=== PATIENT | female | born 1935 | race Caucasian/White ===

== ENCOUNTER → 2017-09-11 10:23 | Outpatient (CLI) | payer MEDICARE, OTHER, SELFPAY ==
[2017-09-11 12:25] LABS: Color, Urine Yellow (Yellow); Glucose, Dipstick Normal (Normal); Ketone-Dipstick 5 mg/dl (Negative); Leukocyte Esterase-Dipstick Negative /ul (Negative); Nitrite-Dipstick Negative (Negative); Occult Blood-Urine 10 /ul (Negative); Protein-Dipstick Negative (Negative); Urine Bilirubin Dipstick Negative (Negative); Urine Clarity Sl. Cloudy (Clear); Urine Urobilinogen Normal (Normal)
[2017-09-11 12:30] LABS: Hematocrit 40.7 % (37-47); Mean Corp Hgb Conc 34.4 g/gl (32-36); Mean Corpuscular Hgb 33.3 pg (27.0-32.0); Mean Corpuscular Volume 96.9 fL (81-99); Platelet Count 164 K/mm3 (150-450); RBC Distribution Width CV 12.2 % (11.6-14.6); RBC Distribution Width SD 41.9 fl (35.1-43.9); Scan Indicated on CBC? Y/N NO; Vitamin D,25 Hydroxy 46.5 ng/mL (19.95-100.01); White Blood Count 5.7 K/mm3 (4.4-11.0)
[2017-09-11 12:31] LABS: PTHIN 35.2 pg/mL (18.4-80.1)
[2017-09-11 12:42] LABS: Albumin, Serum 3.9 g/dL (3.2-5.0); BUN 22 mg/dL (7-18); BUN/Creat Ratio 18.3 RATIO (10-20); Calcium,Total 9.4 mg/dL (8.5-10.1); Chloride 98 mmol/L (98-107); EST Glomerular Filtration Rate 46 mL/min (>60); Est Glom Filt Rate - Afr Amer 56 mL/min (>60); Ferritin 663 ng/mL (8-252); Glucose 87 mg/dL (74-106); Iron 114 ug/dL (50-170); Iron Binding Capacity,Total 262 ug/dL (250-450); PERCENT IRON SATURATION 43.5 % (15.0-55.0); Phosphorus 3.5 mg/dL (2.5-4.9); Potassium 4.1 mmol/L (3.5-5.1); Sodium Level 134 mmol/L (136-145)
[2017-09-11 12:47] LABS: Microalbumin,Random Urine 6.6 mg/L (NO RANGE EST.); Microalbumin:Creatinine Ratio 8.9 mg/g CRE (<30 mg/g CRE)
== END ==
PROVIDERS: Family Provider Family Medicine; PCP Family Medicine; Visit Provider Internal Medicine Nephrology
DX: N18.3 Chronic kidney disease, stage 3 (moderate) (principal); D50.9 Iron deficiency anemia, unspecified; E55.9 Vitamin D deficiency, unspecified
CPT/HCPCS: 36415; 80069; 81002; 82043; 82306; 82570; 82728; 83540; 83550; 83970; 85027

== ENCOUNTER → 2017-09-20 07:56 | Outpatient (CLI) | payer MEDICARE, OTHER, SELFPAY ==
--- NOTE | 2017-09-20 07:59 | HPBI_ITS ---
MAMMOGRAPHY - BILATERAL SCREENING REASON FOR EXAM: Female, 81 years old. Routine annual screening examination. PERTINENT HISTORY: Aunt with breast cancer. TECHNIQUE: Digital bilateral breast stas (3D mammographic acquisition) in the CC and MLO projections. 2-D mediolateral oblique (MLO) and craniocaudad (CC) views of both breasts were obtained. CAD: Full Field Digital Mammography with Computer Added Detection was performed. COMPARISON: Comparison is made with prior study dated September 19, 2016 and September 16, 2015. FINDINGS: Breast Composition: There are scattered areas of fibroglandular density. There are no dominant masses or suspicious calcifications. No other significant abnormalities are identified. There has been no significant change since the prior study. HPBI/SCREENING MAMM (CAD), BILAT IMPRESSION: Stable bilateral screening mammogram. Yearly follow-up mammogram recommended. (A) ASSESSMENT CATEGORY: BIRADS Category 1: Negative. A letter regarding these results will be sent to the patient by the facility within 30 days. Approximately 10% of breast cancers are not detected by mammography. A normal mammogram should not delay biopsy of a clinically suspicious abnormality. [id number] Electronically Signed: Ruben Cook MD at 10:43 EST Tel [phone], Service support ,
== END ==
PROVIDERS: Visit Provider Family Medicine
DX: Z12.31 Encounter for screening mammogram for malignant neoplasm of breast (principal)
CPT/HCPCS: 77063; 77067

== ENCOUNTER 2017-09-29 09:17 | Outpatient (RCR) | payer MEDICARE, OTHER, SELFPAY ==
[2017-09-29 09:36] LABS: Prothrombin Time Fingerstick 27.8 SEC (11.9-14.4)
== END 2017-09-29 15:00 | disposition home or self-care (01) ==
LOC: MTLAB 09:17
PROVIDERS: Visit Provider Family Medicine
DX: Z79.01 Long term (current) use of anticoagulants (principal)
CPT/HCPCS: 36416; 85610

== ENCOUNTER → 2017-11-06 10:09 | Outpatient (CLI) | payer MEDICARE, OTHER, SELFPAY ==
[2017-11-06 10:26] LABS: Prothrombin Time Fingerstick 30.3 SEC (11.9-14.4)
== END ==
PROVIDERS: Visit Provider Family Medicine
DX: Z79.01 Long term (current) use of anticoagulants (principal)
CPT/HCPCS: 36416; 85610

== ENCOUNTER 2017-12-27 11:02 | Outpatient (RCR) | payer MEDICARE, OTHER, SELFPAY ==
[2017-12-07 09:26] LABS: Prothrombin Time Fingerstick 39.3 SEC (11.9-14.4)
[2017-12-27 11:11] LABS: Prothrombin Time Fingerstick 26.1 SEC (11.9-14.4)
== END 2017-12-27 12:00 | disposition home or self-care (01) ==
LOC: MTLAB 11:02
PROVIDERS: Visit Provider Family Medicine
DX: Z79.01 Long term (current) use of anticoagulants (principal)
CPT/HCPCS: 36416; 85610

== ENCOUNTER → 2018-01-24 09:33 | Outpatient (CLI) | payer MEDICARE, OTHER, SELFPAY ==
[2018-01-24 12:18] LABS: Absolute Lymphocyte Count 1.06 X10^3/ul (0.83-4.51); Absolute Neutrophil Count 3.4 X10^3/uL (2.0-7.7); Basophil# 0.04 X10^3/uL; Basophil% 0.8 % (0-1); Eosinophil# 0.06 X10^3/uL; Eosinophils% 1.1 % (0-5); Hematocrit 40.6 % (37-47); Hemoglobin 13.8 g/dl (12.0-15.0); Lymphocyte # 1.06 X10^3/ul (4.0); Lymphocyte % 19.9 % (19-41); Mean Corpuscular Hgb 32.6 pg (27.0-32.0); Mean Platelet Vol. 11.2 fl (6.2-12.0); Monocyte# 0.74 X10^3/uL; Monocyte% 13.9 % (0-10); Neutrophil # 3.41 X10^3/uL (2.7-7.7); Neutrophil % 63.9 % (47-70); Platelet Count 152 K/mm3 (150-450); RBC Distribution Width CV 12.3 % (11.6-14.6); RBC Distribution Width SD 41.9 fl (35.1-43.9); Red Blood Count 4.23 M/mm3 (4.2-5.4); White Blood Count 5.3 K/mm3 (4.4-11.0)
[2018-01-24 12:19] LABS: POSITIVE COUNT NO; POSITIVE DIFFERENTIAL NO; POSITIVE MORPHOLOGY NO
[2018-01-24 12:41] LABS: International Normalized Ratio 2.6; Prothrombin Time (Protime)PT. 28.3 SECONDS (11.7-14.9)
[2018-01-24 12:47] LABS: BNP,B-Type NATRIURETIC PEPTIDE 130.7 pg/mL (0-100)
[2018-01-24 12:51] LABS: Anion Gap 6 (5-15); BUN 24 mg/dL (7-18); BUN/Creat Ratio 20.3 RATIO (10-20); Calcium,Total 9.4 mg/dL (8.5-10.1); Chloride 99 mmol/L (98-107); Creatinine, Serum 1.18 mg/dL (0.55-1.02); EST Glomerular Filtration Rate 47 mL/min (>60); Est Glom Filt Rate - Afr Amer 57 mL/min (>60); Glucose 86 mg/dL (74-106); Sodium Level 133 mmol/L (136-145)
== END ==
PROVIDERS: Visit Provider Physician Assistant Medical
DX: I48.2 Chronic atrial fibrillation (principal); R06.00 Dyspnea, unspecified; R53.83 Other fatigue; Z79.01 Long term (current) use of anticoagulants
CPT/HCPCS: 36415; 80048; 83880; 84443; 85025; 85610; 93225; 93226

== ENCOUNTER → 2018-02-20 06:53 | Outpatient (CLI) | payer MEDICARE, OTHER, SELFPAY ==
--- NOTE | 2018-02-20 06:57 | ECHOD_ITS ---
Reason For Study: DYSPNEA Procedure This was a 2D Doppler, Color Flow transthoracic echocardiogram. Contrast injection was performed. Exam performed in department. Left Ventricle Normal LV size. Left ventricular systolic function is normal. The estimated ejection fraction is 65 %. Unable to assess diastolic dysfunction. No regional wall motion abnormalities noted. Right Ventricle Normal RV size. Normal systolic function. Atria The left atrium is moderately enlarged. The right atrium is mildly enlarged. No doppler evidence for ASD. Mitral Valve There is mild mitral annular calcification. Extension of the mitral annular calcification onto the base of the posterior mitral valve leaflet. Trivial mitral valve insufficiency. Tricuspid Valve Normal tricuspid valve. Mild tricuspid valve insufficiency. Right ventricular systolic pressure estimated to be 23 mmHg. Aortic Valve Trisinus/trileaflet aortic valve. Normal aortic valve. Pulmonic Valve The pulmonic valve is not well visualized. Trivial pulmonic valve insufficiency identified. Great Vessels Normal sized aortic root. Pericardium/Pleural No pericardial effusion. MMode/2D Measurements & Calculations LVIDd: 3.7 cm IVSd: 0.73 cm Ao root diam: 3.2 cm LVIDs: 2.6 cm LVPWd: 0.81 cm FS: 29.6 % LAV(MOD-bp): 65.0 ml LA A4 area: 17.7 cm2 RA A4 area: 17.6 cm2 LAV(MOD-bp) Indexed: 45.7 ml/m2 LAV(MOD-sp2): 86.4 ml LAV(MOD-sp4): 47.6 ml Doppler Measurements & Calculations TR max merna: 220.8 cm/sec TR max P.6 mmHg Interpretation Summary Left ventricular systolic function is normal. The estimated ejection fraction is 65 %. The left atrium is moderately enlarged. The right atrium is mildly enlarged. There is mild mitral annular calcification. Extension of the mitral annular calcification onto the base of the posterior mitral valve leaflet. Trivial mitral valve insufficiency. Mild tricuspid valve insufficiency. Trivial pulmonic valve insufficiency identified. Right ventricular systolic pressure estimated to be 23 mmHg. Unable to assess diastolic dysfunction. Ordering Physician: Irma Mancini/Otto Antonio Referring Physician: JUAN PRATER Performed By: Eliazar PHILLIPS RVT, Carrie and Student
--- NOTE | 2018-02-20 21:42 | STRESSREP ---
Stress Test Report Pharmacologic myocardial perfusion stress test. 82-year-old lady with a history of atrial fibrillation. Stress protocol: Resting EKG demonstrates atrial for ablation with rate of 96 bpm normal intervals and noted resting blood pressure is 126/80 mmHg. 0.4 mg of regadenoson was infused per usual protocol followed by rapid intravenous saline flush injection continuous EKG monitoring was performed. Patient maintained atrial for ablation throughout the recording the maximum heart rate attained was 114 bpm which was 81% of maximum predicted heart rate the maximum workload was 1 metabolic equivalent. Resting blood pressure is 126/80 with a final blood pressure 122/70 mmHg. Myocardial perfusion protocol. 11.5 mCi of technetium 99m sestamibi was injected at rest. 0.5 mg of regadenoson was infused per usual protocol peak infusion 33.8 mCi of technetium 99m sestamibi was injected stress images were obtained stress and rest images were reconstructed and compared in the short axis vertical long and horizontal long axis. Gated images were also obtained. Perfusion SPECT analysis: Review of the stress images demonstrate normal uptake of tracer noted in all areas of the myocardium. The resting images similarly demonstrate normal uptake of tracer noted in all areas of the myocardium. No areas of reversibility are noted suggest ischemia and no previous infarct is noted. Gated SPECT analysis: The gated ejection fraction is over 90%. Conclusion: Normal pharmacologic myocardial perfusion stress test. Preserved ejection fraction.
== END ==
PROVIDERS: Visit Provider Internal Medicine Cardiovascular Disease
DX: R06.00 Dyspnea, unspecified (principal); R06.02 Shortness of breath; R53.83 Other fatigue
CPT/HCPCS: 78452; 93017; 93306; A9500; A4216; J2785

== ENCOUNTER → 2018-02-27 09:19 | Outpatient (CLI) | payer MEDICARE, OTHER, SELFPAY ==
[2018-02-27 12:53] LABS: AST(SGOT) 21 U/L (15-37); Alanine Aminotransfer ALT/SGPT 28 U/L (13-56); Albumin, Serum 3.9 g/dL (3.2-5.0); Alkaline Phosphatase 83 U/L (45-117); Bilirubin, Direct 0.18 mg/dL (0.00-0.30); Cholesterol 148 mg/dL (200); Globulin 4.2 g/dL (2.2-4.2); High Density Lipoprotein 66 mg/dL; Protein, Total 8.1 g/dL (6.4-8.2); Thyroid Stim Hormone (TSH) 0.61 uIU/mL (0.358-3.74); Triglycerides 62 mg/dL; Very Low Density Lipoprotein 12 mg/dL (5-40)
== END ==
PROVIDERS: Internal Medicine Cardiovascular Disease; Visit Provider Family Medicine
DX: E78.5 Hyperlipidemia, unspecified (principal); E03.9 Hypothyroidism, unspecified; Z79.899 Other long term (current) drug therapy
CPT/HCPCS: 36415; 80061; 80076; 84443

== ENCOUNTER 2018-03-29 11:23 | Outpatient (RCR) | payer MEDICARE, OTHER, SELFPAY ==
[2018-03-29 11:41] LABS: Prothrombin Time Fingerstick 28.4 SEC (11.9-14.4)
== END 2018-03-29 13:00 | disposition home or self-care (01) ==
LOC: MTLAB 11:23
PROVIDERS: Visit Provider Family Medicine
DX: Z79.01 Long term (current) use of anticoagulants (principal)
CPT/HCPCS: 36416; 85610

== ENCOUNTER → 2018-04-26 10:43 | Outpatient (CLI) | payer MEDICARE, OTHER, SELFPAY ==
--- NOTE | 2018-04-26 10:45 | RAD_ITS ---
STUDY: X-RAY CHEST REASON FOR EXAM: Female, 82 years old. Shortness of breath with dyspnea TECHNIQUE: PA and lateral views of the chest. COMPARISON: None. FINDINGS: There is hyperinflation of the lungs consistent with chronic obstructive lung disease (COPD). There is no demonstrated pleural abnormality. Normal size heart. Normal mediastinum and angelo. Normal visualized pulmonary arteries. Normal visualized aortic arch and descending thoracic aorta. There are diffuse degenerative changes of the visualized thoracic spine. Normal visualized ribs, clavicles, and shoulders. There is no demonstrated abnormality of the visualized soft tissue structures of the upper abdomen. RAD/Chest PA and Lateral IMPRESSION: COPD without acute findings Electronically Signed: Yfn Duque DO at 10:34 EDT Tel , Service support ,
== END ==
PROVIDERS: Visit Provider Physician Assistant Medical
DX: R06.00 Dyspnea, unspecified (principal); R06.2 Wheezing; Z79.01 Long term (current) use of anticoagulants
CPT/HCPCS: 36416; 71046; 85610

== ENCOUNTER 2018-04-26 11:13 | Outpatient (RCR) | payer MEDICARE, OTHER, SELFPAY ==
[2018-04-26 11:30] LABS: Prothrombin Time Fingerstick 24.6 SEC (11.9-14.4)
== END 2018-04-26 14:00 | disposition home or self-care (01) ==
LOC: MTLAB 11:13
PROVIDERS: Visit Provider Family Medicine
DX: Z79.01 Long term (current) use of anticoagulants (principal)
CPT/HCPCS: 36416; 85610

== ENCOUNTER → 2018-05-04 07:57 | Outpatient (CLI) | payer MEDICARE, OTHER, SELFPAY ==
--- NOTE | 2018-05-04 15:08 | PFTCOMP ---
COMPLETE PULMONARY FUNCTION TEST INTERPRETATION Brief HPI: Patient is an 82 year old female, currently under the care of Irma Mancini, who presents to [facility] for complete pulmonary function tests secondary to diagnosis of dyspnea. Respiratory therapist reports good effort and reproducible results. Interpretation: Forced expiration spirometry shows a moderate large airways obstructive ventilatory defect with an FEV1 of 62% predicted. There is no significant bronchodilator response by ATS criteria. Spirograms are of good quality and plateau slowly, indicating slowly emptying areas of the lungs. The respiratory flow volume loop shows decreased expiratory flow rates at all lung volumes consistent with airway obstruction. Lung volumes by body plethysmography show an elevated total lung capacity at 5.53 L, 122% predicted. All other lung volumes are increased symmetrically. Diffusion capacity by carbon monoxide is lower limit of normal at 65% predicted. The airway resistance is elevated. Compared to previous pulmonary function tests from 02/15/2007, there has been a significant reduction in FVC, FEV1 and DLCO by 24%, 45% and 30% respectively. Impression: Irreversible moderate large airways obstructive ventilatory defect with a symmetric reduction diffusing capacity. There has been significant worsening compared to previous study.
--- NOTE | 2018-05-04 15:12 | PFTCOMP_ITS ---
COMPLETE PULMONARY FUNCTION TEST INTERPRETATION Brief HPI: Patient is an 82 year old female, currently under the care of Irma Mancini, who presents to [facility] for complete pulmonary function tests secondary to diagnosis of dyspnea. Respiratory therapist reports good effort and reproducible results. Interpretation: Forced expiration spirometry shows a moderate large airways obstructive ventilatory defect with an FEV1 of 62% predicted. There is no significant bronch odilator response by ATS criteria. Spirograms are of good quality and plateau slowly, indicating slowly emptying areas of the lungs. The respiratory flow volume loop shows decreased expiratory flow rates at all lung volumes consistent with airway obstruction. Lung volumes by body plethysmography show an elevated total lung capacity at 5.53 L, 122% predicted. All other lung volumes are increased symmetrically. Diffusion capacity by carbon monoxide is lower limit of normal at 65% predicted. The airway resistance is elevated. Compared to previous pulmonary function tests from 02/15/2007, there has been a significant reduction in FVC, FEV1 and DLCO by 24%, 45% and 30% respectively. Impression: Irreversible moderate large airways obstructive ventilatory defect with a symmetric reduction diffusing capacity. There has been significant worsening compared to previous study.
== END ==
PROVIDERS: Referring Provider Physician Assistant Medical; Visit Provider Physician Assistant Medical
DX: R06.00 Dyspnea, unspecified (principal); R06.2 Wheezing
CPT/HCPCS: 94060; 94726; 94729

== ENCOUNTER → 2018-05-18 14:23 | Outpatient (CLI) | payer MEDICARE, OTHER, SELFPAY ==
[2018-05-18 14:43] LABS: Bacteria 0 SEEN /hpf (None Seen); Mucous, Urine 0 SEEN /hpf (<or=2+); Red Blood Cells-Urine 0 SEEN /hpf (0-5)
[2018-05-18 15:56] LABS: Absolute Lymphocyte Count 1.42 X10^3/ul (0.83-4.51); Absolute Neutrophil Count 3.1 X10^3/uL (2.0-7.7); Basophil# 0.04 X10^3/uL; Basophil% 0.8 % (0-1); Eosinophil# 0.08 X10^3/uL; Eosinophils% 1.5 % (0-5); Hematocrit 40.1 % (37-47); Hemoglobin 13.4 g/dl (12.0-15.0); Lymphocyte # 1.42 X10^3/ul (4.0); Lymphocyte % 26.7 % (19-41); Mean Corp Hgb Conc 33.4 g/gl (32-36); Mean Corpuscular Hgb 32.2 pg (27.0-32.0); Mean Corpuscular Volume 96.4 fL (81-99); Monocyte# 0.67 X10^3/uL; Monocyte% 12.6 % (0-10); Neutrophil # 3.11 X10^3/uL (2.7-7.7); Neutrophil % 58.4 % (47-70); Platelet Count 169 K/mm3 (150-450); RBC Distribution Width CV 12.5 % (11.6-14.6); RBC Distribution Width SD 43.7 fl (35.1-43.9); RET-HE 34.6 pg (30-35); Red Blood Count 4.16 M/mm3 (4.2-5.4); Reticulocyte Count 1.45 % (0.5-1.5); White Blood Count 5.3 K/mm3 (4.4-11.0)
[2018-05-18 16:04] LABS: POSITIVE COUNT NO; POSITIVE DIFFERENTIAL NO; POSITIVE MORPHOLOGY NO
[2018-05-18 16:22] LABS: Color, Urine Yellow (Yellow); Glucose, Dipstick Normal (Normal); Ketone-Dipstick Negative (Negative); Leukocyte Esterase-Dipstick 25 /ul (Negative); Nitrite-Dipstick Negative (Negative); Occult Blood-Urine Negative /ul (Negative); Protein-Dipstick Negative (Negative); Urine Bilirubin Dipstick Negative (Negative); Urine Clarity Clear (Clear); Urine Urobilinogen Normal (Normal)
[2018-05-18 16:25] LABS: Albumin, Serum 3.9 g/dL (3.2-5.0); BUN 29 mg/dL (7-18); BUN/Creat Ratio 23.6 RATIO (10-20); Calcium,Total 9.7 mg/dL (8.5-10.1); Chloride 99 mmol/L (98-107); Creatinine, Serum 1.23 mg/dL (0.55-1.02); EST Glomerular Filtration Rate 45 mL/min (>60); Est Glom Filt Rate - Afr Amer 54 mL/min (>60); Ferritin 876 ng/mL (8-252); Glucose 93 mg/dL (74-106); Iron 120 ug/dL (50-170); Iron Binding Capacity,Total 258 ug/dL (250-450); Phosphorus 3.2 mg/dL (2.5-4.9); Potassium 4.3 mmol/L (3.5-5.1); Sodium Level 135 mmol/L (136-145)
[2018-05-18 16:29] LABS: PTHIN 40.9 pg/mL (18.4-80.1)
[2018-05-18 16:34] LABS: Vitamin B12 > 2000 pg/mL (211-911); Vitamin D,25 Hydroxy 45.5 ng/mL (29.95-100.01)
[2018-05-18 16:42] LABS: Squamous Epithelial Cells - UA 0-5 SEEN /hpf (5-10); White Blood Cells 0-5 SEEN /hpf (0-5)
[2018-05-18 16:46] LABS: Microalbumin,Random Urine 5.7 mg/L (NO RANGE EST.); Microalbumin:Creatinine Ratio 8.3 mg/g CRE (<30 mg/g CRE)
== END ==
PROVIDERS: Referring Provider Internal Medicine Nephrology; Visit Provider Internal Medicine Nephrology
DX: N18.3 Chronic kidney disease, stage 3 (moderate) (principal); E55.9 Vitamin D deficiency, unspecified; D50.9 Iron deficiency anemia, unspecified
CPT/HCPCS: 36415; 80069; 81001; 82043; 82306; 82570; 82607; 82728; 83540; 83550; 83970; 85025; 85045

== ENCOUNTER → 2018-05-23 11:54 | Outpatient (CLI) | payer MEDICARE, OTHER, SELFPAY ==
[2018-05-23 14:19] LABS: Protein, Urine (Random) 9.7 mg/dL (<11.9); Protein:Creat Ratio 104 mg/g CRE (0-200)
== END ==
PROVIDERS: Referring Provider Internal Medicine Nephrology; Visit Provider Internal Medicine Nephrology
DX: N18.3 Chronic kidney disease, stage 3 (moderate) (principal); E55.9 Vitamin D deficiency, unspecified
CPT/HCPCS: 82570; 84156

== ENCOUNTER 2018-06-01 16:47 | Outpatient (RCR) | payer MEDICARE, OTHER, SELFPAY ==
[2018-06-01 16:56] LABS: Prothrombin Time Fingerstick 25.9 SEC (11.9-14.4)
== END 2018-06-01 18:00 | disposition home or self-care (01) ==
LOC: MTLAB 16:47
PROVIDERS: Referring Provider Family Medicine; Visit Provider Family Medicine
DX: Z79.01 Long term (current) use of anticoagulants (principal)
CPT/HCPCS: 36416; 85610

== ENCOUNTER 2018-07-02 12:14 | Outpatient (RCR) | payer MEDICARE, OTHER, SELFPAY ==
[2018-07-02 12:25] LABS: Prothrombin Time Fingerstick 29.5 SEC (11.9-14.4)
== END 2018-07-02 13:00 | disposition home or self-care (01) ==
LOC: MTLAB 12:14
PROVIDERS: Referring Provider Family Medicine; Visit Provider Family Medicine
DX: Z79.01 Long term (current) use of anticoagulants (principal)
CPT/HCPCS: 36416; 85610

== ENCOUNTER 2018-08-08 10:00 | Outpatient (RCR) | payer MEDICARE, OTHER, SELFPAY ==
[2018-08-08 12:43] LABS: Prothrombin Time (Protime)PT. 22.8 SECONDS (11.7-14.9)
[2018-08-08 12:47] LABS: AST(SGOT) 23 U/L (15-37); Alanine Aminotransfer ALT/SGPT 31 U/L (13-56); Albumin, Serum 3.9 g/dL (3.2-5.0); Alkaline Phosphatase 91 U/L (45-117); Bilirubin, Direct 0.15 mg/dL (0.00-0.30); Cholesterol 147 mg/dL (200); Globulin 4.2 g/dL (2.2-4.2); High Density Lipoprotein 68 mg/dL; Protein, Total 8.1 g/dL (6.4-8.2); Triglycerides 63 mg/dL; Very Low Density Lipoprotein 13 mg/dL (5-40)
== END 2018-08-08 11:00 | disposition home or self-care (01) ==
LOC: MTLAB 10:00
PROVIDERS: Internal Medicine Cardiovascular Disease; Referring Provider Family Medicine; Visit Provider Family Medicine
DX: E78.5 Hyperlipidemia, unspecified (principal); Z79.01 Long term (current) use of anticoagulants
CPT/HCPCS: 36415; 80061; 80076; 85610

== ENCOUNTER 2018-09-10 15:36 | Outpatient (RCR) | payer MEDICARE, OTHER, SELFPAY ==
[2018-09-10 15:51] LABS: Prothrombin Time Fingerstick 22.6 SEC (11.9-14.4)
== END 2018-10-04 15:01 | disposition home or self-care (01) ==
LOC: MTLAB 15:36
PROVIDERS: Referring Provider Family Medicine; Visit Provider Family Medicine
DX: Z79.01 Long term (current) use of anticoagulants (principal)
CPT/HCPCS: 36416; 85610

== ENCOUNTER 2018-10-17 10:49 | Outpatient (RCR) | payer MEDICARE, OTHER, SELFPAY ==
[2018-10-17 11:05] LABS: Prothrombin Time Fingerstick 26.6 SEC (11.9-14.4)
== END 2018-10-17 11:00 | disposition home or self-care (01) ==
LOC: MTLAB 10:49
PROVIDERS: Referring Provider Family Medicine; Visit Provider Family Medicine
DX: Z79.01 Long term (current) use of anticoagulants (principal)
CPT/HCPCS: 36416; 85610

== ENCOUNTER → 2018-10-17 12:20 | Outpatient (CLI) | payer MEDICARE, OTHER, SELFPAY ==
--- NOTE | 2018-10-17 12:21 | BI_ITS ---
MAMMOGRAPHY - BILATERAL SCREENING REASON FOR EXAM: Female, 83 years old. Routine annual screening examination. PERTINENT HISTORY: Aunt with breast cancer. TECHNIQUE: Digital bilateral breast stas (3D mammographic acquisition) in the CC and MLO projections. 2-D mediolateral oblique (MLO) and craniocaudad (CC) views of both breasts were obtained. CAD: Full Field Digital Mammography with Computer Added Detection was performed. COMPARISON: Comparison is made with prior study dated September 20, 2017 and September 19, 2016. FINDINGS: Breast Composition: There are scattered areas of fibroglandular density. There are no dominant masses or suspicious calcifications. No other significant abnormalities are identified. There has been no significant change since the prior study. BI/SCREENING MAMM (CAD), BILAT IMPRESSION: Stable bilateral screening mammogram. Yearly follow-up mammogram recommended. (A) ASSESSMENT CATEGORY: BIRADS Category 1: Negative. A letter regarding these results will be sent to the patient by the facility within 30 days. Approximately 10% of breast cancers are not detected by mammography. A normal mammogram should not delay biopsy of a clinically suspicious abnormality. [id number] Electronically Signed: Ruben Cook, at 14:27 EDT , Service support ,
== END ==
PROVIDERS: Referring Provider Family Medicine; Visit Provider Family Medicine
DX: Z12.31 Encounter for screening mammogram for malignant neoplasm of breast (principal); Z80.3 Family history of malignant neoplasm of breast; Z79.01 Long term (current) use of anticoagulants
CPT/HCPCS: 36416; 77063; 77067; 85610

== ENCOUNTER 2018-11-14 12:43 | Outpatient (RCR) | payer MEDICARE, OTHER, SELFPAY ==
[2018-11-14 13:00] LABS: Prothrombin Time Fingerstick 27.7 SEC (11.9-14.4)
== END 2018-12-04 16:00 | disposition home or self-care (01) ==
LOC: MTLAB 12:43
PROVIDERS: Referring Provider Family Medicine; Visit Provider Family Medicine
DX: Z79.01 Long term (current) use of anticoagulants (principal)
CPT/HCPCS: 36416; 85610

== ENCOUNTER → 2018-11-27 17:26 | Outpatient (CLI) | payer MEDICARE, OTHER, SELFPAY ==
[2018-11-21 12:06] VITALS: BMI 22.4
[2018-11-27 18:01] LABS: Absolute Lymphocyte Count 1.26 X10^3/ul (0.83-4.51); Absolute Neutrophil Count 4.3 X10^3/uL (2.0-7.7); Basophil# 0.06 X10^3/uL; Basophil% 0.9 % (0-1); Eosinophil# 0.17 X10^3/uL; Eosinophils% 2.5 % (0-5); Hematocrit 40.7 % (37-47); Hemoglobin 14.2 g/dl (12.0-15.0); Lymphocyte # 1.26 X10^3/ul (4.0); Lymphocyte % 18.5 % (19-41); Mean Corp Hgb Conc 34.9 g/gl (32-36); Mean Corpuscular Hgb 32.6 pg (27.0-32.0); Mean Corpuscular Volume 93.6 fL (81-99); Mean Platelet Vol. 10.4 fl (6.2-12.0); Monocyte# 1.05 X10^3/uL; Monocyte% 15.4 % (0-10); Neutrophil # 4.26 X10^3/uL (2.7-7.7); Neutrophil % 62.4 % (47-70); Platelet Count 164 K/mm3 (150-450); RBC Distribution Width CV 12.5 % (11.6-14.6); Red Blood Count 4.35 M/mm3 (4.2-5.4); White Blood Count 6.8 K/mm3 (4.4-11.0)
[2018-11-27 18:03] LABS: POSITIVE COUNT NO; POSITIVE DIFFERENTIAL NO; POSITIVE MORPHOLOGY NO
[2018-11-27 18:50] LABS: Thyroid Stim Hormone (TSH) 0.44 uIU/mL (0.358-3.74)
== END ==
PROVIDERS: Referring Provider Family Medicine; Visit Provider Family Medicine
DX: R53.83 Other fatigue (principal)
CPT/HCPCS: 36415; 84443; 85025

== ENCOUNTER → 2018-11-28 14:02 | Outpatient (CLI) | payer MEDICARE, OTHER, SELFPAY ==
[2018-11-28 08:50] VITALS: BMI 22.3
[2018-11-28 14:31] LABS: Bacteria 0 SEEN /hpf (None Seen); Mucous, Urine 0 SEEN /hpf (<or=2+); Squamous Epithelial Cells - UA 0 SEEN /hpf (5-10)
[2018-11-28 14:43] LABS: Color, Urine Red (Yellow); Glucose, Dipstick Normal (Normal); Ketone-Dipstick 5 mg/dl (Negative); Leukocyte Esterase-Dipstick 100 /ul (Negative); Nitrite-Dipstick Negative (Negative); Occult Blood-Urine 250 /ul (Negative); Protein-Dipstick 500 mg/dl (Negative); Urine Bilirubin Dipstick Negative (Negative); Urine Clarity Turbid (Clear); Urine Urobilinogen Normal (Normal)
[2018-11-28 15:09] LABS: White Blood Cells >100 SEEN /hpf (0-5)
[2018-11-28 15:10] LABS: Red Blood Cells-Urine > 100 SEEN /hpf (0-5)
== END ==
PROVIDERS: Referring Provider Physician Assistant; Visit Provider Physician Assistant
DX: R30.0 Dysuria (principal)
CPT/HCPCS: 81001; 87086; 87088

== ENCOUNTER 2018-12-01 03:12 | Observation (INO) | payer MEDICARE, OTHER, SELFPAY ==
[2018-12-01] VITALS (8 sets, daily range): BP systolic 91–140; BP diastolic 61–95; PULSE 88–147; RESP 17–28; TEMP 36.4–36.5; O2SAT 94–98; BMI 22.8; BMI 22.2
--- NOTE | 2018-12-01 03:20 | EKG12_ITS ---
Test Reason : CHEST PAIN Blood Pressure : / mmHG Vent. Rate : 131 BPM Atrial Rate : 153 BPM P-R Int : 000 ms QRS Dur : 096 ms QT Int : 324 ms P-R-T Axes : 000 072 -73 degrees QTc Int : 478 ms Atrial fibrillation with rapid ventricular response Nonspecific ST & T wave abnormality Abnormal ECG Confirmed by NICA NATHAN, VIDA ([id number]), sound editor DOREEN BOSE ([id number]) on 12/03/2018 11:51:35 AM Referred By: REGINO Confirmed By:VIDA YOUSIF MD
--- NOTE | 2018-12-01 03:20 | RAD_ITS ---
STUDY: X-RAY CHEST REASON FOR EXAM: Female, 83 years old. Chest pain TECHNIQUE: Single frontal view of the chest. COMPARISON: April 26, 2018. FINDINGS: There is hyperinflation of the lungs consistent with chronic obstructive lung disease (COPD). Left basal atelectasis. No focal consolidation. Chronic lung changes. Normal size heart. Aortic calcifications. There are diffuse degenerative changes of the visualized thoracic spine. Normal visualized ribs, clavicles, and shoulders. There is no demonstrated abnormality of the visualized soft tissue structures of the upper abdomen. RAD/Chest 1 View (Portable) IMPRESSION: Findings suggest COPD. Left basal atelectasis/scarring. No focal consolidation. Electronically Signed: Sukhwinder Zepeda, at 3:52 EDT Tel , Service support ,
[2018-12-01 03:28] LABS: Absolute Lymphocyte Count 0.98 X10^3/ul (0.83-4.51); Absolute Neutrophil Count 8.4 X10^3/uL (2.0-7.7); Basophil# 0.02 X10^3/uL; Basophil% 0.2 % (0-1); Differential Indicated SCAN CRITERIA MET; Eosinophil# 0.22 X10^3/uL; Eosinophils% 1.9 % (0-5); Hematocrit 39.9 % (37-47); Hemoglobin 14.3 g/dl (12.0-15.0); Lymphocyte # 0.98 X10^3/ul (4.0); Lymphocyte % 8.5 % (19-41); Mean Corp Hgb Conc 35.8 g/gl (32-36); Mean Corpuscular Volume 92.1 fL (81-99); Mean Platelet Vol. 10.6 fl (6.2-12.0); Monocyte# 1.83 X10^3/uL; Monocyte% 15.9 % (0-10); Neutrophil # 8.43 X10^3/uL (2.7-7.7); Neutrophil % 73.2 % (47-70); POSITIVE COUNT NO; POSITIVE DIFFERENTIAL YES; POSITIVE MORPHOLOGY NO; Platelet Count 156 K/mm3 (150-450); RBC Distribution Width CV 12.4 % (11.6-14.6); RBC Distribution Width SD 42.1 fl (35.1-43.9); Red Blood Count 4.33 M/mm3 (4.2-5.4); White Blood Count 11.5 K/mm3 (4.4-11.0)
[2018-12-01 03:32] LABS: International Normalized Ratio 2.5; Prothrombin Time (Protime)PT. 26.7 SECONDS (11.7-14.9)
[2018-12-01] MEDS: dilTIAZem 25 MG/5 ML Vial 20 MG IV BOLUS (03:33)
[2018-12-01] MEDS: Aspirin 81 MG TAB.CHEW 324 MG PO (03:37)
--- NOTE | 2018-12-01 03:40 | ED.RN ---
PER DR LACY HOLD IV FLUIDS AT THIS TIME
--- NOTE | 2018-12-01 03:42 | ED.DCSUM_ITS ---
- ER Visit Summary Date of Service: 12/01/18 Chief Complaint: Shortness of breath History of Present Illness: The patient is a [address] Antonio and Dr. Bae. She reports that she has shortness of breath began 3 days ago. Family actually reports that one week ago walking back from the barn she became very short of breath and had perioral cyanosis. Patient reports that the past 3 nights when she is laid down she has become short of breath. This resolves with using 2 pillows. Patient does report that she has palpitations. She has a history of atrial fibrillation. States that she is chronically in this. She had an episode she had when she went to bed 3 days ago and was gone when she woke up in the morning. She has palpitations again that began today. She reports that she has a sharp left-sided chest pain lasts seconds at a time. Is 4-10 at worst and she is pain-free currently. Nothing makes this better or worse. Patient also reports she has had a nonproductive cough for the past 3 days. She denies any fever or chills. Denies any other complaints. Physical Examination: Vitals: 97.6, 140/94, 147, 28, 94% on room air which is not hypoxic. General: Well-nourished and well-developed. Head: Normocephalic atraumatic. Neck: Supple, no lymphadenopathy. No JVD. Nontender. Cardiovascular: Tachycardic irregular rhythm. No murmurs. Respiratory: No respiratory distress. Clear to auscultation bilaterally. No crackles. Abdominal: Soft, nontender, nondistended, normal bowel sounds. No guarding, rebound, or peritoneal signs. Back: Nontender. Extremities: Nontender, no edema. Skin: Normal color, no rash. Neurologic: Alert and oriented ?3. Cranial nerves II through XII are intact. Normal strength and sensation. Psych: Normal affect. Test Results: EKG is A. fib [address] changes. This is a change from her last EKG in November 2012. At that time she is sinus bradycardia at 48. CBC shows a white count of 11.5 with 73 segmented neutrophils, 9 episodes, and 16 monocytes. INR is 2.5. Chem-7 shows a sodium of 131, chloride of 93, BUN of 29, creatinine 1.58, glucose 126. Troponin is negative. BNP is 79.1. Chest x- ray shows chronic changes. Emergency Department Course and Treatment: Patient had an IV placed. She was given aspirin p.o. and Cardizem IV. Her rate decreased into the 90s with this. She was given an extra dose of Cardizem p.o. Treatment Plan: The patient was discussed with Dr. Montes. She will be admitted to the hospital for further evaluation and treatment. Disposition: Admitted in improved condition. Impression: 1. Atrial fibrillation with RVR. 2. Coumadin coagulopathy. This note was generated with [employer] dictation software. It may contain incorrect words, spelling, and punctuation that were not noted in review of the chart prior to signing ED Disposition - Plan for ED Patient: Referrals: Willi Bae [Primary Care Provider] -
[2018-12-01 03:43] LABS: Anion Gap 12 (5-15); BUN 29 mg/dL (7-18); BUN/Creat Ratio 18.4 RATIO (10-20); Calcium,Total 9.8 mg/dL (8.5-10.1); Chloride 93 mmol/L (98-107); Creatinine, Serum 1.58 mg/dL (0.55-1.02); EST Glomerular Filtration Rate 33 mL/min (>60); Est Glom Filt Rate - Afr Amer 40 mL/min (>60); Glucose 126 mg/dL (74-106); Potassium 3.8 mmol/L (3.5-5.1); Sodium Level 131 mmol/L (136-145)
[2018-12-01] MEDS: dilTIAZem CD 120 MG Capsule PO (04:11)
[2018-12-01 04:18] LABS: BNP,B-Type NATRIURETIC PEPTIDE 79.1 pg/mL (0-100)
--- NOTE | 2018-12-01 05:22 | PCM.HP.STD ---
Problem List (1) Pure hypercholesterolemia Status: Chronic (2) Essential hypertension Status: Chronic (3) Dyspnea Status: Chronic Qualifiers: (4) Chronic atrial fibrillation Status: Chronic (5) Hypothyroidism, iatrogenic Status: Chronic History of Present Illness Date of Admission: 12/01/18 Chief Complaint: Weakness and dyspnea The patient is a 83 year old F with PMH as below who presents with 1 week history of feeling weak, and fatigued. She is also had worsening dyspnea which is uncommon for her and has had required to sleep on 2 pillows to deal with shortness of breath while laying down. She does not have a history of heart failure and had an echo 9 months ago with a normal EF. She has been doing well recently except for having 2 UTIs in the last couple weeks necessitating treatment with Macrobid. She denies any chest pain currently though she says that she has had intermittent chest pain lasting about a second each time without radiation anywhere. In the ER her heart rate was found to be in the 140s and she was given another dose of her Cardizem at 120 mg, her heart rate improved after the extra dose as well as a 20 mg IV bolus to below 100. She says that she still feels tired but better than when she came in. Chest x-ray was negative, and EKG was unremarkable. Troponin was normal. Past Medical History Past Medical History (Chronic Problems): Chronic Problems (Last Reviewed 11/28/18 @ 08:51 by Yvrose Gardner) Pure hypercholesterolemia (Chronic) Essential hypertension (Chronic) Other specified transient cerebral ischemias (Chronic) Dyspnea (Chronic) Chronic atrial fibrillation (Chronic) Mitral valve disorder (Chronic) Hypothyroidism, iatrogenic (Chronic) Medical History: Medical History (Last Reviewed 11/28/18 @ 08:51 by Yvrose Gardner) Pure hypercholesterolemia (Chronic) E78.00 Essential hypertension (Chronic) I10 Other specified transient cerebral ischemias (Chronic) G45.8 Dyspnea (Chronic) R06.00 Chronic atrial fibrillation (Chronic) I48.2 Mitral valve disorder (Chronic) I05.9 Hypothyroidism, iatrogenic (Chronic) E03.2 History of hysterectomy Z98.890, Z90.710 Allergies No Known Allergies Allergy (Verified 12/01/18 03:15) Home Medications: Ambulatory Orders Medication Instructions Recorded Cholecalciferol (Vitamin D3) 2,000 unit PO DAILY 10/09/16 [Vitamin D3] Cyanocobalamin [Vitamin B12] 1,000 mcg PO DAILY 10/09/16 Docusate Sodium [Colace] 50 mg PO DAILY 10/09/16 Ferrous Sulfate [Iron] 325 mg PO DAILY 10/09/16 Levothyroxine [Synthroid] 75 mcg PO DAILY 10/09/16 Lisinopril/Hydrochlorothiazide 1 tab PO BID 10/09/16 [Zestoretic 20/12.5 Tablet] Multivitamins,Therapeutic 1 tab PO DAILY 10/09/16 [Multivitamin] Mv-Min/FA/Vit K/Lycop/Lut/Zeax 1 ea PO DAILY 10/09/16 [Ocuvite Eye + Multi Tablet] [place]-3S/Dha/Epa/Fish Oil [Fish 1 ea PO DAILY 10/09/16 Oil 1,200 mg Softgel] Rosuvastatin Calcium [Crestor] 5 mg PO DAILY 10/09/16 diltiazem CD 120 mg 120 mg PO DAILY #90 cap 04/26/18 capsule,extended release 24 hr warfarin 6 mg tablet 6 mg PO MOTUTHFRSA 08/08/18 nitrofurantoin 100 mg PO BID #20 cap 11/28/18 monohydrate/macrocrystals 100 mg capsule Warfarin Sodium 5 mg PO SUWE 12/01/18 Surgical History: Surgical History (Last Reviewed 11/28/18 @ 08:51 by Yvrose Gardner) History of appendectomy Z98.890, Z90.49 Surgical History: hysterectomy Smoking Status: Former smoker Tobacco Use: Cigarettes Alcohol: None Drugs: None - *Family History Maternal Family History: Family History (Last Reviewed 11/28/18 @ 08:51 by Yvrose Gardner) Mother CAD (coronary artery disease) Brother Cancer Brother Cancer Epilepsy Sister Diabetes Sister Diabetes Sister CVA (cerebral vascular accident) Review of Systems Constitutional: Reports: Weakness. Denies: Chills, Fever, Weight Change HEENT: Denies: Head Aches, Sinus Congestion, Sinus Drainage Cardiovascular: Denies: Chest Pain, Palpitations Respiratory: Reports: Shortness of Breath, Shortness of breath upon exertion. Denies: Cough, Shortness of breath at rest, Sputum production Gastrointestinal: Denies: Abdominal Pain, Nausea, Vomiting Genitourinary: Denies: Dysuria Musculoskeletal: Denies: Joint Pain, Joint Tenderness Skin: Denies: Rash, Wounds Neurological: Denies: Numbness, Tingling, Focal weakness Psychiatric: Denies: Anxiety, Depression Hematologic/ Lymphatic: Denies: Easy Bruising, Easy Bleeding VTE Information - Inpt Only VTE Present on Admission: No - Physical Exam General: Alert, Oriented x3, Cooperative, No apparent distress HEENT: Atraumatic, PERRLA, EOMI, Normocephalic Oral: Moist Mucosa Neck: Supple, No JVD, Trachea Midline Lungs: Clear to auscultation, Normal air movement, No rhonchi, No wheeze, No rales Cardiovascular: Normal S1, Normal S2, No murmurs, Tachycardic, - - Irregular rhythm Abdomen: Soft, Non Tender, Non-Distended, No Hepato-splenomegaly Extremities: No edema, Capillary Refill Less than 3 Seconds Skin: No rashes, No breakdown Neurological: Neuro grossly intact, Sensory exam intact to light touch and pain Psych/Mental Status: Normal Affect, Appropriate Vital Signs Temp Pulse Resp BP Pulse Ox 97.6 F L 109 H 17 122/95 H 95 12/01/18 03:13 12/01/18 05:07 12/01/18 05:07 12/01/18 05:07 12/01/18 05:07 Oxygen Delivery Method Room Air Weight: 129 lb 3.054 oz Body Mass Index (BMI) 22.8 Laboratory Tests Past 24 Hrs 12/01/18 12/01/18 12/01/18 03:18 03:18 03:18 WBC 11.5 H RBC 4.33 Hgb 14.3 Hct 39.9 MCV 92.1 MCH 33.0 H MCHC 35.8 RDW 12.4 RDW Differential 42.1 Plt Count 156 MPV 10.6 Immature Gran % (Auto) 0.300 Neut % (Auto) 73.2 H Lymph % (Auto) 8.5 L [place] % (Auto) 15.9 H Eos % (Auto) 1.9 Baso % (Auto) 0.2 Absolute Neuts (auto) 8.4 H Absolute Lymphs (auto) 0.98 Total Counted Not Reportable PT 26.7 H INR 2.5 Sodium 131 L Potassium 3.8 Chloride 93 L Carbon Dioxide 26.0 Anion Gap 12 BUN 29 H Creatinine 1.58 H Estim Creat Clear Calc 23.10 Est GFR (MDRD) Af Amer 40 L Est GFR (MDRD) Non-Af 33 L BUN/Creatinine Ratio 18.4 Glucose 126 H Calcium 9.8 Troponin I < 0.015 B-Natriuretic Peptide 12/01/18 03:18 WBC RBC Hgb Hct MCV MCH MCHC RDW RDW Differential Plt Count MPV Immature Gran % (Auto) Neut % (Auto) Lymph % (Auto) [place] % (Auto) Eos % (Auto) Baso % (Auto) Absolute Neuts (auto) Absolute Lymphs (auto) Total Counted PT INR Sodium Potassium Chloride Carbon Dioxide Anion Gap BUN Creatinine Estim Creat Clear Calc Est GFR (MDRD) Af Amer Est GFR (MDRD) Non-Af BUN/Creatinine Ratio Glucose Calcium Troponin I B-Natriuretic Peptide 79.1 Assessment/Plan All Active Problems (Last Reviewed 11/28/18 @ 08:51 by Yvrose Gardner) Hematuria (Acute) UTI (urinary tract infection) (Acute) 1. A. fib with RVR/HTN/HLD/CKD 3 -She states she has been cardioverted in the past however she has chronic A. fib now for the last several years. -On Coumadin with an INR of 2.5 on admission, will continue and monitor -She is on 120 mg of Cardizem daily, she was given another dose early this morning and will plan to give her an extra 60 mg today and then transition to 180 mg daily if her blood pressure can tolerate and it controls her heart rate. -Can continue with her lisinopril and hydrochlorothiazide as well as her Crestor -We will obtain an echo, despite her orthopnea she has a normal BNP and no pleural effusion or edema therefore I do not feel that this is any kind of heart failure 2. Hypothyroidism -TSH was 0.4 for a few days ago and this is keeping with her TSH levels from the past -Continue with her home Synthroid dosage 3. UTI -She has had 2 UTIs in the last several weeks both of which were treated with Macrobid -She states that the symptoms that took her to the urgent care have resolved with treatment, therefore we will continue with her Macrobid. DVT: Coumadin Code Visit OBSV E&M: 37541 Initial observation care L3
--- NOTE | 2018-12-01 05:55 | ECHOD_ITS ---
Reason For Study: Afib, Aflutter Procedure This was a 2D Doppler, Color Flow transthoracic echocardiogram. The exam was of adequate technical quality. Exam performed portable in patient room. Left Ventricle Normal LV size. Left ventricular systolic function is normal. The estimated ejection fraction is 65 %. Unable to assess diastolic dysfunction. No regional wall motion abnormalities noted. Right Ventricle Normal RV size. Normal systolic function. Atria The left atrium is moderately enlarged. The right atrium is mildly enlarged. No doppler evidence for ASD. Mitral Valve There is mild mitral annular calcification. Extension of the mitral annular calcification onto the base of the posterior mitral valve leaflet. Mild (1+) mitral valve insufficiency. Tricuspid Valve Normal tricuspid valve. Mild tricuspid valve insufficiency. Right ventricular systolic pressure estimated to be 25 mmHg. Aortic Valve Trisinus/trileaflet aortic valve. Normal aortic valve. Trivial aortic valve insufficiency. Pulmonic Valve The pulmonic valve is not well visualized. Great Vessels Normal sized aortic root. Pericardium/Pleural No pericardial effusion. MMode/2D Measurements & Calculations LVIDd: 3.7 cm IVSd: 0.75 cm Ao root diam: 2.7 cm LVIDs: 2.4 cm LVPWd: 0.78 cm LA dimension: 4.5 cm RVDd: 2.3 cm FS: 34.2 % LAV(MOD-bp): 46.4 ml LVAd ap4: 10.9 cm2 SV(MOD-sp4): 9.9 ml LAV(MOD-bp) Indexed: 28.9 ml/m2 EDV(MOD-sp4): 17.7 ml LAV(MOD-sp2): 65.4 ml EDV(sp4-el): 18.4 ml LAV(MOD-sp4): 32.6 ml LVAs ap4: 7.0 cm2 ESV(MOD-sp4): 7.8 ml ESV(sp4-el): 8.1 ml EF(MOD-sp4): 55.8 % EF(sp4-el): 56.0 % SV(sp4-el): 10.3 ml LA A4 area: 15.1 cm2 RA A4 area: 12.9 cm2 Doppler Measurements & Calculations MV E max merna: 117.2 cm/sec MV V2 max: 132.7 cm/sec Ao V2 max: 115.0 cm/sec MV max P.0 mmHg Ao max P.3 mmHg MV V2 mean: 75.6 cm/sec Ao V2 mean: 80.6 cm/sec MV mean P.7 mmHg Ao mean P.8 mmHg MV V2 VTI: 24.9 cm Ao V2 VTI: 21.3 cm LV V1 max: 94.6 cm/sec PA V2 max: 91.2 cm/sec TR max merna: 234.9 cm/sec LV V1 max P.6 mmHg TR max P.1 mmHg Interpretation Summary Left ventricular systolic function is normal. The estimated ejection fraction is 65 %. The left atrium is moderately enlarged. The right atrium is mildly enlarged. There is mild mitral annular calcification. Extension of the mitral annular calcification onto the base of the posterior mitral valve leaflet. Mild (1+) mitral valve insufficiency. Mild tricuspid valve insufficiency. Trivial aortic valve insufficiency. Right ventricular systolic pressure estimated to be 25 mmHg. Unable to assess diastolic dysfunction. Ordering Physician: Fadi Montes Referring Physician: Willi Bae Performed By: Winsome López, ALAN, RVT
[2018-12-01] MEDS: dilTIAZem 60 MG Tablet PO (07:39)
--- NOTE | 2018-12-01 12:01 | DCINST_ITS ---
You will use the following diet at home:: Cardiac Discharge Activity: Return to Normal Activity Call your doctor if you observe: Shortness of breath, Dizziness, Fainting spells, Chest pain Allergies/Adverse Reactions: Allergies No Known Allergies Allergy (Verified 12/01/18 03:15) Medications to take at Discharge Cholecalciferol (Vitamin D3) [Vitamin D3] 2,000 unit PO DAILY 10/09/16 Cyanocobalamin [Vitamin B12] 1,000 mcg PO DAILY 10/09/16 Docusate Sodium [Colace] 50 mg PO DAILY 10/09/16 Ferrous Sulfate [Iron] 325 mg PO DAILY 10/09/16 Levothyroxine [Synthroid] 75 mcg PO DAILY 10/09/16 Lisinopril/Hydrochlorothiazide [Zestoretic 20/12.5 Tablet] 1 tab PO BID 10/09/16 Multivitamins,Therapeutic [Multivitamin] 1 tab PO DAILY 10/09/16 Mv-Min/FA/Vit K/Lycop/Lut/Zeax [Ocuvite Eye Plus Multi Tablet] 1 ea PO DAILY 10/09/16 [place]-3S/Dha/Epa/Fish Oil [Fish Oil 1,200 mg Softgel] 1 ea PO DAILY 10/09/16 Rosuvastatin Calcium [Crestor] 5 mg PO DAILY 10/09/16 warfarin 6 mg tablet 6 mg PO MOTUTHFRSA 08/08/18 Diltiazem HCl [Cartia Xt] 180 mg PO DAILY #30 cap.er.24h 12/01/18 Nitrofurantoin Monohyd/M-Cryst [Nitrofurantoin [place]-Mcr 100 mg] 100 mg PO BID MDD 10 DAYS STARTED 11/28/18 12/01/18 Warfarin Sodium 5 mg PO SUWE 12/01/18 The following prescriptions were given: Diltiazem HCl [Cartia Xt] 180 mg PO DAILY #30 cap.er.24h Primary Care Physician: Willi Bae [Primary Care Provider] - Please follow up with your Primary Care Physician in: 1 Week Test Results: Test results from this visit will be discussed in further detail at your follow- up appointment, if applicable. Please Follow Up With: Otto Antonio MD When: As scheduled
--- NOTE | 2018-12-01 14:22 | PCM.DC.SUM ---
<Martha Mendiola - Last Filed: 12/01/18 14:32> Discharge Date and Diagnosis Date of Admission: 12/01/18 Date of Discharge: 12/01/18 - Primary Discharge Diagnosis 1. Atrial fibrillation with RVR on chronic atrial fibrillation 2. Hypertension 3. Hyperlipidemia 4. Hypothyroidism 5. Chronic kidney disease stage III 6. Recent UTI - Secondary Discharge Diagnosis Chronic Problems (Last Reviewed 11/28/18 @ 08:51 by Yvrose Gardner) Pure hypercholesterolemia (Chronic) Essential hypertension (Chronic) Other specified transient cerebral ischemias (Chronic) Dyspnea (Chronic) Chronic atrial fibrillation (Chronic) Mitral valve disorder (Chronic) Hypothyroidism, iatrogenic (Chronic) Hospital Course and Treatment Imaging Results: Diagnostic Data Chest X-Ray 12/01/18 03:20 IMPRESSION: Findings suggest COPD. Left basal atelectasis/scarring. No focal consolidation. Electronically Signed: Sukhwinder Jamesford, at 3:52 EDT Tel , Service support , Fax [phone] Operations: None Procedures: 2-D Echocardiogram Summary of Care Provided: The patient is a 83 year old F admitted 12/01/2017 due to weakness, dyspnea, palpitations. 1. Atrial fibrillation with RVR on chronic atrial fibrillation-troponin negative. Echocardiogram shows an EF of 65%, mild mitral valve insufficiency, mild tricuspid valve insufficiency, RVSP estimated to be 25 mmHg. BNP within normal limits. Chest x-ray without acute process. Home Cardizem regimen increased to 180 mg p.o. daily. Heart rate now well controlled. Continue Coumadin regimen. INR therapeutic. Follow-up with primary care physician in 1 week. Follow-up with Dr. Antonio as scheduled. 2. Hypertension-stable, continue home regimen. 3. Hyperlipidemia-continue statin. 4. Hypothyroidism-continue Synthroid regimen. 5. Chronic kidney disease stage III-creatinine mildly above baseline on admission. Suspect secondary to mild dehydration. She did receive IV fluids. Recommend continued outpatient monitoring with follow-up BMP. 6. Recent UTI-recent urine culture 11/28/2018 with mixed gram-positive organisms. Complete previously prescribed Macrobid regimen. General: Alert, Oriented x3, Cooperative HEENT: Atraumatic, PERRLA, EOMI, Normocephalic Neck: Supple, No JVD, Negative Carotid Bruits Lungs: Clear to auscultation, Normal air movement Cardiovascular: Regular rate, Regular Rhythm, Normal S1, Normal S2, No murmurs Abdomen: Bowel Sounds Present, Soft, Non Tender, Non-Distended Extremities: No clubbing, No cyanosis, No edema, Capillary Refill Less than 3 Seconds Skin: No rashes, No breakdown Musculoskeletal: No Tenderness to Palpation of Joints or Extremities Neurological: Cranial nerves II-XII grossly intact, Neuro grossly intact Psych/Mental Status: Normal Affect, Appropriate Patient seen and examined prior to discharge. Physical assessment as noted above. Patient is stable for discharge with follow up recommendations as noted above. This patient was seen by CRISTOPHER Yip under the supervision of Dr. Bartholomew. - Physical Exam Vital Signs Temp Pulse Resp BP Pulse Ox 97.7 F L 88 18 91/61 95 12/01/18 08:34 12/01/18 08:34 12/01/18 08:34 12/01/18 08:34 12/01/18 08:34 Oxygen Delivery Method Room Air Weight: 125 lb 7.088 oz Body Mass Index (BMI) 22.2 Laboratory Tests Past 24 Hrs 12/01/18 12/01/18 12/01/18 03:18 03:18 03:18 WBC 11.5 H RBC 4.33 Hgb 14.3 Hct 39.9 MCV 92.1 MCH 33.0 H MCHC 35.8 RDW 12.4 RDW Differential 42.1 Plt Count 156 MPV 10.6 Immature Gran % (Auto) 0.300 Neut % (Auto) 73.2 H Lymph % (Auto) 8.5 L Price % (Auto) 15.9 H Eos % (Auto) 1.9 Baso % (Auto) 0.2 Absolute Neuts (auto) 8.4 H Absolute Lymphs (auto) 0.98 Total Counted Not Reportable PT 26.7 H INR 2.5 Sodium 131 L Potassium 3.8 Chloride 93 L Carbon Dioxide 26.0 Anion Gap 12 BUN 29 H Creatinine 1.58 H Estim Creat Clear Calc 23.10 Est GFR (MDRD) Af Amer 40 L Est GFR (MDRD) Non-Af 33 L BUN/Creatinine Ratio 18.4 Glucose 126 H Calcium 9.8 Troponin I < 0.015 B-Natriuretic Peptide 12/01/18 03:18 WBC RBC Hgb Hct MCV MCH MCHC RDW RDW Differential Plt Count MPV Immature Gran % (Auto) Neut % (Auto) Lymph % (Auto) Price % (Auto) Eos % (Auto) Baso % (Auto) Absolute Neuts (auto) Absolute Lymphs (auto) Total Counted PT INR Sodium Potassium Chloride Carbon Dioxide Anion Gap BUN Creatinine Estim Creat Clear Calc Est GFR (MDRD) Af Amer Est GFR (MDRD) Non-Af BUN/Creatinine Ratio Glucose Calcium Troponin I B-Natriuretic Peptide 79.1 Discharge Diet: Low fat/ Low Cholesterol Discharge Activity: Return to Normal Activity Call your doctor if you observe: Shortness of breath, Dizziness, Fainting spells, Chest pain Home Medications: Medications to take at Discharge Cholecalciferol (Vitamin D3) [Vitamin D3] 2,000 unit PO DAILY 10/09/16 Cyanocobalamin [Vitamin B12] 1,000 mcg PO DAILY 10/09/16 Docusate Sodium [Colace] 50 mg PO DAILY 10/09/16 Ferrous Sulfate [Iron] 325 mg PO DAILY 10/09/16 Levothyroxine [Synthroid] 75 mcg PO DAILY 10/09/16 Lisinopril/Hydrochlorothiazide [Zestoretic 20/12.5 Tablet] 1 tab PO BID 10/09/16 Multivitamins,Therapeutic [Multivitamin] 1 tab PO DAILY 10/09/16 Mv-Min/FA/Vit K/Lycop/Lut/Zeax [Ocuvite Eye Plus Multi Tablet] 1 ea PO DAILY 10/09/16 [place]-3S/Dha/Epa/Fish Oil [Fish Oil 1,200 mg Softgel] 1 ea PO DAILY 10/09/16 Rosuvastatin Calcium [Crestor] 5 mg PO DAILY 10/09/16 warfarin 6 mg tablet 6 mg PO MOTUTHFRSA 08/08/18 Diltiazem HCl [Cartia Xt] 180 mg PO DAILY #30 cap.er.24h 12/01/18 Nitrofurantoin Monohyd/M-Cryst [Nitrofurantoin Price-Mcr 100 mg] 100 mg PO BID MDD 10 DAYS STARTED 11/28/18 12/01/18 Warfarin Sodium 5 mg PO SUWE 12/01/18 Following Prescrptions Were Given to Patient: Diltiazem HCl [Cartia Xt] 180 mg PO DAILY #30 cap.er.24h Primary Care Physician: Willi Bae [Primary Care Provider] - Please follow up with your Primary Care Physician in: 1 Week Please Follow Up With: Otto Antonio MD When: As scheduled Disposition: Home Minutes spent on discharge:: 35 Patient Condition:: Stable Medical Necessity - Tobacco Use Smoking Status: Former smoker Tobacco Use: Cigarettes Meaningful Use Info Meaningful Use Diagnoses (Choose all that apply): None applicable <Radha Bartholomew E - Last Filed: 12/02/18 11:11> Discharge Date and Diagnosis - Secondary Discharge Diagnosis Chronic Problems (Last Reviewed 11/28/18 @ 08:51 by Yvrose Gardner) Pure hypercholesterolemia (Chronic) Essential hypertension (Chronic) Other specified transient cerebral ischemias (Chronic) Dyspnea (Chronic) Chronic atrial fibrillation (Chronic) Mitral valve disorder (Chronic) Hypothyroidism, iatrogenic (Chronic) Hospital Course and Treatment Imaging Results: 12/01/18 05:55 Echo Complete [ECHO] AM (NON MEDS) Summary of Care Provided: Hospitalist note: Discharge summary above reviewed and I concur with the above treatment and discharge plan. Patient was admitted because of weakness, shortness of breath and palpitations he was found to have A. fib with RVR with history of chronic atrial fibrillation. On admission, EKG revealed A. fib with RVR without acute ischemic changes. Troponin was negative. She was given 1 dose of IV Cardizem bolus in the ER as well as loading dose of Cardizem orally. Initially, heart rate was in the 140s and with IV Cardizem drip, heart rate came down to around 100, blood pressure remained stable. Routine blood work revealed mild leukocytosis and chronic elevated creatinine. Her potassium and calcium were normal. Troponin and BNP were negative. Chest x-ray showed no acute findings. 2D echocardiogram revealed ejection fraction 65%, moderately enlarged left atrium, mildly enlarged right atrium, RVSP of 25. Dose of oral Cardizem increased to 180 mg p.o. daily and heart rate remained stable. Patient discharged home in a stable medical condition, discharged on Cardizem 180 mg p.o. daily, continued on Coumadin, INR was therapeutic, continued on her other chronic home medications without any changes, recommended follow-up with PCP in 1 week and follow-up with cardiology as scheduled. - Physical Exam General: Alert, Oriented x3, Cooperative, No apparent distress. HEENT: Atraumatic, PERRLA, EOMI. Neck: Supple, No JVD, Negative Carotid Bruits, Trachea Midline, Thyroid Normal. Lungs: Clear to auscultation, Normal air movement, No rhonchi, No wheeze, No rales. Cardiovascular: Regular rate, Regular Rhythm, Normal S1, Normal S2, PMI Normal. Abdomen: Bowel Sounds Present, Soft, Non Tender, Non-Distended, No Hepato-splenomegaly. Extremities: No clubbing, No cyanosis, No edema Skin: No rashes, No breakdown Neurological: Neuro grossly intact Vital Signs are stable. This note was generated with [employer] dictation software. It may contain incorrect words, spelling, and punctuation that were not noted in checking the note before signing. - Physical Exam Vital Signs Temp Pulse Resp BP Pulse Ox 97.7 F L 88 18 91/61 95 12/01/18 08:34 12/01/18 08:34 12/01/18 08:34 12/01/18 08:34 12/01/18 08:34 Oxygen Delivery Method Room Air Weight: 125 lb 7.088 oz Body Mass Index (BMI) 22.2 Laboratory Tests Past 24 Hrs 12/01/18 12/01/18 12/01/18 03:18 03:18 03:18 WBC 11.5 H RBC 4.33 Hgb 14.3 Hct 39.9 MCV 92.1 MCH 33.0 H MCHC 35.8 RDW 12.4 RDW Differential 42.1 Plt Count 156 MPV 10.6 Immature Gran % (Auto) 0.300 Neut % (Auto) 73.2 H Lymph % (Auto) 8.5 L Price % (Auto) 15.9 H Eos % (Auto) 1.9 Baso % (Auto) 0.2 Absolute Neuts (auto) 8.4 H Absolute Lymphs (auto) 0.98 Total Counted Not Reportable PT 26.7 H INR 2.5 Sodium 131 L Potassium 3.8 Chloride 93 L Carbon Dioxide 26.0 Anion Gap 12 BUN 29 H Creatinine 1.58 H Estim Creat Clear Calc 23.10 Est GFR (MDRD) Af Amer 40 L Est GFR (MDRD) Non-Af 33 L BUN/Creatinine Ratio 18.4 Glucose 126 H Calcium 9.8 Troponin I < 0.015 B-Natriuretic Peptide 12/01/18 03:18 WBC RBC Hgb Hct MCV MCH MCHC RDW RDW Differential Plt Count MPV Immature Gran % (Auto) Neut % (Auto) Lymph % (Auto) Price % (Auto) Eos % (Auto) Baso % (Auto) Absolute Neuts (auto) Absolute Lymphs (auto) Total Counted PT INR Sodium Potassium Chloride Carbon Dioxide Anion Gap BUN Creatinine Estim Creat Clear Calc Est GFR (MDRD) Af Amer Est GFR (MDRD) Non-Af BUN/Creatinine Ratio Glucose Calcium Troponin I B-Natriuretic Peptide 79.1 Disposition: Home Minutes spent on discharge:: 26 Patient Condition:: Stable Meaningful Use Info Meaningful Use Diagnoses (Choose all that apply): None applicable Code Visit OBSV E&M: 90324 Observation care discharge
--- NOTE | 2018-12-01 14:31 | DS.PCM_ITS ---
Addendum entered and electronically signed by CRISTOPHER Yip 12/01/18 14:32: Code Visit Addendum: Cardiovascular assessment at discharge should read-atrial fibrillation, rate controlled. No murmur. Original Note: <Martha Mendiola - Last Filed: 12/01/18 14:32> Discharge Date and Diagnosis Date of Admission: 12/01/18 Date of Discharge: 12/01/18 - Primary Discharge Diagnosis 1. Atrial fibrillation with RVR on chronic atrial fibrillation 2. Hypertension 3. Hyperlipidemia 4. Hypothyroidism 5. Chronic kidney disease stage III 6. Recent UTI - Secondary Discharge Diagnosis Chronic Problems (Last Reviewed 11/28/18 @ 08:51 by Yvrose Gardner) Pure hypercholesterolemia (Chronic) Essential hypertension (Chronic) Other specified transient cerebral ischemias (Chronic) Dyspnea (Chronic) Chronic atrial fibrillation (Chronic) Mitral valve disorder (Chronic) Hypothyroidism, iatrogenic (Chronic) Hospital Course and Treatment Imaging Results: Diagnostic Data Chest X-Ray 12/01/18 03:20 IMPRESSION: Findings suggest COPD. Left basal atelectasis/scarring. No focal consolidation. Electronically Signed: Sukhwinder Zepeda, at 3:52 EDT Tel , Service support , Fax [phone] Operations: None Procedures: 2-D Echocardiogram Summary of Care Provided: The patient is a 83 year old F admitted 12/01/2017 due to weakness, dyspnea, palpitations. 1. Atrial fibrillation with RVR on chronic atrial fibrillation-troponin negative. Echocardiogram shows an EF of 65%, mild mitral valve insufficiency, mild tricuspid valve insufficiency, RVSP estimated to be 25 mmHg. BNP within normal limits. Chest x-ray without acute process. Home Cardizem regimen increased to 180 mg p.o. daily. Heart rate now well controlled. Continue Coumadin regimen. INR therapeutic. Follow-up with primary care physician in 1 week. Follow-up with Dr. Antonio as scheduled. 2. Hypertension-stable, continue home regimen. 3. Hyperlipidemia-continue statin. 4. Hypothyroidism-continue Synthroid regimen. 5. Chronic kidney disease stage III-creatinine mildly above baseline on admission. Suspect secondary to mild dehydration. She did receive IV fluids. Recommend continued outpatient monitoring with follow-up BMP. 6. Recent UTI-recent urine culture 11/28/2018 with mixed gram-positive organisms. Complete previously prescribed Macrobid regimen. General: Alert, Oriented x3, Cooperative HEENT: Atraumatic, PERRLA, EOMI, Normocephalic Neck: Supple, No JVD, Negative Carotid Bruits Lungs: Clear to auscultation, Normal air movement Cardiovascular: Regular rate, Regular Rhythm, Normal S1, Normal S2, No murmurs Abdomen: Bowel Sounds Present, Soft, Non Tender, Non-Distended Extremities: No clubbing, No cyanosis, No edema, Capillary Refill Less than 3 Seconds Skin: No rashes, No breakdown Musculoskeletal: No Tenderness to Palpation of Joints or Extremities Neurological: Cranial nerves II-XII grossly intact, Neuro grossly intact Psych/Mental Status: Normal Affect, Appropriate Patient seen and examined prior to discharge. Physical assessment as noted above. Patient is stable for discharge with follow up recommendations as noted above. This patient was seen by CRISTOPHER Yip under the supervision of Dr. Bartholomew. - Physical Exam Vital Signs Temp Pulse Resp BP Pulse Ox 97.7 F L 88 18 91/61 95 12/01/18 08:34 12/01/18 08:34 12/01/18 08:34 12/01/18 08:34 12/01/18 08:34 Oxygen Delivery Method Room Air Weight: 125 lb 7.088 oz Body Mass Index (BMI) 22.2 Laboratory Tests Past 24 Hrs 12/01/18 12/01/18 12/01/18 03:18 03:18 03:18 WBC 11.5 H RBC 4.33 Hgb 14.3 Hct 39.9 MCV 92.1 MCH 33.0 H MCHC 35.8 RDW 12.4 RDW Differential 42.1 Plt Count 156 MPV 10.6 Immature Gran % (Auto) 0.300 Neut % (Auto) 73.2 H Lymph % (Auto) 8.5 L Menard % (Auto) 15.9 H Eos % (Auto) 1.9 Baso % (Auto) 0.2 Absolute Neuts (auto) 8.4 H Absolute Lymphs (auto) 0.98 Total Counted Not Reportable PT 26.7 H INR 2.5 Sodium 131 L Potassium 3.8 Chloride 93 L Carbon Dioxide 26.0 Anion Gap 12 BUN 29 H Creatinine 1.58 H Estim Creat Clear Calc 23.10 Est GFR (MDRD) Af Amer 40 L Est GFR (MDRD) Non-Af 33 L BUN/Creatinine Ratio 18.4 Glucose 126 H Calcium 9.8 Troponin I < 0.015 B-Natriuretic Peptide 12/01/18 03:18 WBC RBC Hgb Hct MCV MCH MCHC RDW RDW Differential Plt Count MPV Immature Gran % (Auto) Neut % (Auto) Lymph % (Auto) Menard % (Auto) Eos % (Auto) Baso % (Auto) Absolute Neuts (auto) Absolute Lymphs (auto) Total Counted PT INR Sodium Potassium Chloride Carbon Dioxide Anion Gap BUN Creatinine Estim Creat Clear Calc Est GFR (MDRD) Af Amer Est GFR (MDRD) Non-Af BUN/Creatinine Ratio Glucose Calcium Troponin I B-Natriuretic Peptide 79.1 Discharge Diet: Low fat/ Low Cholesterol Discharge Activity: Return to Normal Activity Call your doctor if you observe: Shortness of breath, Dizziness, Fainting spells, Chest pain Home Medications: Medications to take at Discharge Cholecalciferol (Vitamin D3) [Vitamin D3] 2,000 unit PO DAILY 10/09/16 Cyanocobalamin [Vitamin B12] 1,000 mcg PO DAILY 10/09/16 Docusate Sodium [Colace] 50 mg PO DAILY 10/09/16 Ferrous Sulfate [Iron] 325 mg PO DAILY 10/09/16 Levothyroxine [Synthroid] 75 mcg PO DAILY 10/09/16 Lisinopril/Hydrochlorothiazide [Zestoretic 20/12.5 Tablet] 1 tab PO BID 10/09/16 Multivitamins,Therapeutic [Multivitamin] 1 tab PO DAILY 10/09/16 Mv-Min/FA/Vit K/Lycop/Lut/Zeax [Ocuvite Eye Plus Multi Tablet] 1 ea PO DAILY 10/09/16 [place]-3S/Dha/Epa/Fish Oil [Fish Oil 1,200 mg Softgel] 1 ea PO DAILY 10/09/16 Rosuvastatin Calcium [Crestor] 5 mg PO DAILY 10/09/16 warfarin 6 mg tablet 6 mg PO MOTUTHFRSA 08/08/18 Diltiazem HCl [Cartia Xt] 180 mg PO DAILY #30 cap.er.24h 12/01/18 Nitrofurantoin Monohyd/M-Cryst [Nitrofurantoin Menard-Mcr 100 mg] 100 mg PO BID MDD 10 DAYS STARTED 11/28/18 12/01/18 Warfarin Sodium 5 mg PO SUWE 12/01/18 Following Prescrptions Were Given to Patient: Diltiazem HCl [Cartia Xt] 180 mg PO DAILY #30 cap.er.24h Primary Care Physician: Willi Bae [Primary Care Provider] - Please follow up with your Primary Care Physician in: 1 Week Please Follow Up With: Otto Antonio MD When: As scheduled Disposition: Home Minutes spent on discharge:: 35 Patient Condition:: Stable Medical Necessity - Tobacco Use Smoking Status: Former smoker Tobacco Use: Cigarettes Meaningful Use Info Meaningful Use Diagnoses (Choose all that apply): None applicable <Radha Bartholomew E - Last Filed: 12/02/18 11:11> Discharge Date and Diagnosis - Secondary Discharge Diagnosis Chronic Problems (Last Reviewed 11/28/18 @ 08:51 by Yvrose Gardner) Pure hypercholesterolemia (Chronic) Essential hypertension (Chronic) Other specified transient cerebral ischemias (Chronic) Dyspnea (Chronic) Chronic atrial fibrillation (Chronic) Mitral valve disorder (Chronic) Hypothyroidism, iatrogenic (Chronic) Hospital Course and Treatment Imaging Results: 12/01/18 05:55 Echo Complete [ECHO] AM (NON MEDS) Summary of Care Provided: Hospitalist note: Discharge summary above reviewed and I concur with the above treatment and discharge plan. Patient was admitted because of weakness, shortness of breath and palpitations he was found to have A. fib with RVR with history of chronic atrial fibrillation. On admission, EKG revealed A. fib with RVR without acute ischemic changes. Troponin was negative. She was given 1 dose of IV Cardizem bolus in the ER as well as loading dose of Cardizem orally. Initially, heart rate was in the 140s and with IV Cardizem drip, heart rate came down to around 100, blood pressure remained stable. Routine blood work revealed mild leukocytosis and chronic elevated creatinine. Her potassium and calcium were normal. Troponin and BNP were negative. Chest x-ray showed no acute findings. 2D echocardiogram revealed ejection fraction 65%, moderately enlarged left atrium, mildly enlarged right atrium, RVSP of 25. Dose of oral Cardizem increased to 180 mg p.o. daily and heart rate remained stable. Patient discharged home in a stable medical condition, discharged on Cardizem 180 mg p.o. daily, continued on Coumadin, INR was therapeutic, continued on her other chronic home medications without any changes, recommended follow-up with PCP in 1 week and follow-up with cardiology as scheduled. - Physical Exam General: Alert, Oriented x3, Cooperative, No apparent distress. HEENT: Atraumatic, PERRLA, EOMI. Neck: Supple, No JVD, Negative Carotid Bruits, Trachea Midline, Thyroid Normal. Lungs: Clear to auscultation, Normal air movement, No rhonchi, No wheeze, No rales. Cardiovascular: Regular rate, Regular Rhythm, Normal S1, Normal S2, PMI Normal. Abdomen: Bowel Sounds Present, Soft, Non Tender, Non-Distended, No Hepato- splenomegaly. Extremities: No clubbing, No cyanosis, No edema Skin: No rashes, No breakdown Neurological: Neuro grossly intact Vital Signs are stable. This note was generated with [employer] dictation software. It may contain incorrect words, spelling, and punctuation that were not noted in checking the note before signing. - Physical Exam Vital Signs Temp Pulse Resp BP Pulse Ox 97.7 F L 88 18 91/61 95 12/01/18 08:34 12/01/18 08:34 12/01/18 08:34 12/01/18 08:34 12/01/18 08:34 Oxygen Delivery Method Room Air Weight: 125 lb 7.088 oz Body Mass Index (BMI) 22.2 Laboratory Tests Past 24 Hrs 12/01/18 12/01/18 12/01/18 03:18 03:18 03:18 WBC 11.5 H RBC 4.33 Hgb 14.3 Hct 39.9 MCV 92.1 MCH 33.0 H MCHC 35.8 RDW 12.4 RDW Differential 42.1 Plt Count 156 MPV 10.6 Immature Gran % (Auto) 0.300 Neut % (Auto) 73.2 H Lymph % (Auto) 8.5 L Menard % (Auto) 15.9 H Eos % (Auto) 1.9 Baso % (Auto) 0.2 Absolute Neuts (auto) 8.4 H Absolute Lymphs (auto) 0.98 Total Counted Not Reportable PT 26.7 H INR 2.5 Sodium 131 L Potassium 3.8 Chloride 93 L Carbon Dioxide 26.0 Anion Gap 12 BUN 29 H Creatinine 1.58 H Estim Creat Clear Calc 23.10 Est GFR (MDRD) Af Amer 40 L Est GFR (MDRD) Non-Af 33 L BUN/Creatinine Ratio 18.4 Glucose 126 H Calcium 9.8 Troponin I < 0.015 B-Natriuretic Peptide 12/01/18 03:18 WBC RBC Hgb Hct MCV MCH MCHC RDW RDW Differential Plt Count MPV Immature Gran % (Auto) Neut % (Auto) Lymph % (Auto) Menard % (Auto) Eos % (Auto) Baso % (Auto) Absolute Neuts (auto) Absolute Lymphs (auto) Total Counted PT INR Sodium Potassium Chloride Carbon Dioxide Anion Gap BUN Creatinine Estim Creat Clear Calc Est GFR (MDRD) Af Amer Est GFR (MDRD) Non-Af BUN/Creatinine Ratio Glucose Calcium Troponin I B-Natriuretic Peptide 79.1 Disposition: Home Minutes spent on discharge:: 26 Patient Condition:: Stable Meaningful Use Info Meaningful Use Diagnoses (Choose all that apply): None applicable Code Visit OBSV E&M: 37640 Observation care discharge
== END 2018-12-01 12:00 | disposition home or self-care (01) ==
LOC: ED 04:14 → PCU 05:21
PROVIDERS: Admitting Provider Family Medicine; Emergency Provider Emergency Medicine; Visit Provider Hospitalist
DX: I48.2 Chronic atrial fibrillation (principal); E78.5 Hyperlipidemia, unspecified; I12.9 Hypertensive chronic kidney disease with stage 1 through stage 4 chronic kidney disease, or unspecified chronic kidney disease; N18.3 Chronic kidney disease, stage 3 (moderate); T45.515A Adverse effect of anticoagulants, initial encounter; D68.9 Coagulation defect, unspecified; E03.2 Hypothyroidism due to medicaments and other exogenous substances; T50.905A Adverse effect of unspecified drugs, medicaments and biological substances, initial encounter; Z79.899 Other long term (current) drug therapy; Z79.01 Long term (current) use of anticoagulants; Z87.891 Personal history of nicotine dependence; Z87.440 Personal history of urinary (tract) infections
CPT/HCPCS: 71045; 80048; 83880; 84484; 85025; 85610; 93005; 93306; 96374; 99285; A4216

== ENCOUNTER 2018-12-20 10:43 | Outpatient (RCR) | payer MEDICARE, OTHER, SELFPAY ==
[2018-12-01 05:47] VITALS: BMI 22.2
[2018-12-20 10:55] LABS: Prothrombin Time Fingerstick 19.2 SEC (11.9-14.4)
== END 2018-12-20 12:00 | disposition home or self-care (01) ==
LOC: MTLAB 10:43
PROVIDERS: Referring Provider Family Medicine; Visit Provider Family Medicine
DX: Z79.01 Long term (current) use of anticoagulants (principal)
CPT/HCPCS: 36416; 85610

== ENCOUNTER → 2018-12-25 06:00 | Outpatient (CLI) | payer MEDICARE, OTHER, SELFPAY ==
--- NOTE | 2018-12-25 10:29 | STRESSREP_ITS ---
Stress Test Report Date: 12-25-18 Procedure: Pharmacologic stress nuclear imaging study Indications: Chest pain; shortness of breath/dyspnea on exertion; atrial fibrillation Consent: Per the patient Procedure: The patient underwent pharmacologic (Regadenoson) evaluation with a peak heart rate of 139 beats per minute (100 %predicted maximal heart rate) and a peak blood pressure of 140/76 mmHg. The baseline ECG demonstrated atrial fibrillation. The peak pharmacologic ECG demonstrated no obvious ECG changes with the recovery ECG demonstrated nonspec ific ST segment abnormality/depression in leads II, III, aVF, and V4 through V6. There were no cardiac dysrhythmias pretest, during pharmacologic infusion, or recovery. There was no complaint of chest discomfort during pharmacologic infusion or recovery. The examination was discontinued secondary to completion of protocol. Impression: 1. Pharmacologic (Regadenoson) evaluation 2. Peak pharmacologic ECG with to need atrial fibrillation with the peak pharmacologic ECG demonstrated no obvious ECG changes with the recovery ECG demonstrating nonspecific ST segment abnormality/depression in leads II, III, aVF, and V4 through V6. 3. There were no cardiac dysrhythmias pretest, during pharmacologic infusion, or recovery. 4. Nuclear images pending Myocardial perfusion imaging study: Technique: The patient was injected with 11.3 millicuries of technetium 99m Cardiolite and subsequently rest SPECT Cardiolite nuclear imaging was obtained in the horizontal long, vertical long, and short axis views. The patient underwent pharmacologic (Regadenoson) evaluation with a peak heart rate of 139 beats per minute (100 % percent predicted maximal heart rate) and a peak blood pressure of 140/76 mmHg. The patient was injected with 32.9 millicuries of technetium 99m Cardiolite and subsequently stress SPECT Cardiolite nuclear imaging was obtained in the horizontal long, vertical long, and short axis views. A gated Cardiolite study at peak stress was obtained. Interpretation: Rest and stress SPECT Cardiolite nuclear imaging status post realignment, normalization, and attenuation correction demonstrate relative uniform tracer uptake and myocardial perfusion appearing within normal limits. There is end systolic thickening and brightening. The gated Cardiolite study demonstrates myocardial thickening and inward wall motion. The reported LVEF is 92 %. Impression: 1. Rest and stress SPECT Cardiolite nuclear imaging demonstrate relative uniform tracer uptake and myocardial perfusion appearing within normal limits. 2. The gated Cardiolite study reports an LVEF of 92 %. This note was generated with Dragon dictation software. It may contain incorrect words, spelling, and punctuation that were not noted in checking the note before signing.
== END ==
PROVIDERS: Referring Provider Nurse Practitioner Family; Visit Provider Nurse Practitioner Family
DX: R07.9 Chest pain, unspecified (principal); R06.00 Dyspnea, unspecified; I48.2 Chronic atrial fibrillation; I50.9 Heart failure, unspecified; R53.83 Other fatigue
CPT/HCPCS: 78452; 93017; A9500; A4216; J2785

== ENCOUNTER 2019-01-09 14:24 | Outpatient (RCR) | payer MEDICARE, OTHER, SELFPAY ==
[2018-12-14 14:38] VITALS: BMI 22.1
[2019-01-09 14:51] LABS: Prothrombin Time Fingerstick 29.2 SEC (11.9-14.4)
== END 2019-01-09 15:00 | disposition home or self-care (01) ==
LOC: MTLAB 14:24
PROVIDERS: Referring Provider Family Medicine; Visit Provider Family Medicine
DX: Z79.01 Long term (current) use of anticoagulants (principal)
CPT/HCPCS: 36416; 85610

== ENCOUNTER 2019-02-06 08:19 | Outpatient (RCR) | payer MEDICARE, OTHER, SELFPAY ==
[2019-01-30 10:37] VITALS: BMI 21.9
[2019-02-06 09:56] LABS: Color, Urine Yellow (Yellow); Glucose, Dipstick Normal (Normal); Ketone-Dipstick Negative (Negative); Leukocyte Esterase-Dipstick 100 /ul (Negative); Nitrite-Dipstick Negative (Negative); Occult Blood-Urine Negative /ul (Negative); Protein-Dipstick Negative (Negative); Specific Gravity, Urine 1.005 (1.002-1.030); Urine Bilirubin Dipstick Negative (Negative); Urine Clarity Clear (Clear); Urine Urobilinogen Normal (Normal)
[2019-02-06 10:04] LABS: Hematocrit 39.3 % (37-47); Hemoglobin 13.2 g/dl (12.0-15.0); Mean Corp Hgb Conc 33.6 g/gl (32-36); Mean Corpuscular Hgb 32.2 pg (27.0-32.0); Mean Corpuscular Volume 95.9 fL (81-99); Mean Platelet Vol. 11.1 fl (6.2-12.0); Platelet Count 159 K/mm3 (150-450); RBC Distribution Width CV 12.9 % (11.6-14.6); White Blood Count 5.6 K/mm3 (4.4-11.0)
[2019-02-06 10:07] LABS: International Normalized Ratio 2.8; Prothrombin Time (Protime)PT. 29.2 SECONDS (11.7-14.9)
[2019-02-06 10:08] LABS: Scan Indicated on CBC? Y/N NO
[2019-02-06 10:09] LABS: Albumin, Serum 3.7 g/dL (3.2-5.0); BUN 22 mg/dL (7-18); BUN/Creat Ratio 17.5 RATIO (10-20); Calcium,Total 9.5 mg/dL (8.5-10.1); Chloride 101 mmol/L (98-107); Creatinine, Serum 1.26 mg/dL (0.55-1.02); EST Glomerular Filtration Rate 43 mL/min (>60); Est Glom Filt Rate - Afr Amer 52 mL/min (>60); Glucose 84 mg/dL (74-106); Potassium 4.2 mmol/L (3.5-5.1); Sodium Level 134 mmol/L (136-145)
[2019-02-06 10:17] LABS: Vitamin D,25 Hydroxy 67.5 ng/mL (29.95-100.01)
[2019-02-06 10:19] LABS: Microalbumin,Random Urine < 5.0 mg/L (NO RANGE EST.); Protein, Urine (Random) 10.4 mg/dL (<11.9); Protein:Creat Ratio 174 mg/g CRE (0-200)
[2019-02-06 10:23] LABS: AST(SGOT) 18 U/L (15-37); Alanine Aminotransfer ALT/SGPT 26 U/L (13-56); Albumin, Serum 3.7 g/dL (3.2-5.0); Alkaline Phosphatase 94 U/L (45-117); Bilirubin, Direct 0.14 mg/dL (0.00-0.30); Cholesterol 130 mg/dL (200); High Density Lipoprotein 68 mg/dL; Protein, Total 7.7 g/dL (6.4-8.2); Triglycerides 54 mg/dL; Very Low Density Lipoprotein 11 mg/dL (5-40)
== END 2019-02-06 08:30 | disposition home or self-care (01) ==
LOC: MTLAB 08:19
PROVIDERS: Internal Medicine Cardiovascular Disease; Internal Medicine Nephrology; Referring Provider Family Medicine; Visit Provider Family Medicine
DX: N18.3 Chronic kidney disease, stage 3 (moderate) (principal); E55.9 Vitamin D deficiency, unspecified; D50.9 Iron deficiency anemia, unspecified; E78.00 Pure hypercholesterolemia, unspecified; Z79.01 Long term (current) use of anticoagulants
CPT/HCPCS: 36415; 80061; 80069; 80076; 81002; 82043; 82306; 82570; 83970; 84156; 85027; 85610

== ENCOUNTER 2019-03-18 10:09 | Outpatient (RCR) | payer MEDICARE, OTHER, SELFPAY ==
[2019-02-20 13:43] VITALS: BMI 21.9
[2019-03-18 12:35] LABS: International Normalized Ratio 2.3; Prothrombin Time (Protime)PT. 25.2 SECONDS (11.7-14.9)
[2019-03-18 13:01] LABS: Thyroid Stim Hormone (TSH) 0.54 uIU/mL (0.358-3.74)
== END 2019-03-18 11:09 | disposition home or self-care (01) ==
LOC: MTLAB 10:09
PROVIDERS: Referring Provider Family Medicine; Visit Provider Family Medicine
DX: E03.9 Hypothyroidism, unspecified (principal); Z79.01 Long term (current) use of anticoagulants
CPT/HCPCS: 36415; 84443; 85610

== ENCOUNTER → 2019-04-22 08:40 | Outpatient (CLI) | payer MEDICARE, OTHER, SELFPAY ==
[2019-02-20 13:43] VITALS: BMI 21.9
[2019-04-22 09:40] VITALS: PULSE 100; PULSE 104; PULSE 105; PULSE 81; PULSE 83; PULSE 93; PULSE 96; O2SAT 93; O2SAT 94; O2SAT 95; O2SAT 96; O2SAT 97
--- NOTE | 2019-04-22 14:23 | PCM.PSN.6M ---
PSN 6 Minute Walk Test - 6 Minute Walk Test 6 Minute Walk Test: 6 Minute Walk Test PSN:6-Minute Walk Test Start: 04/22/19 09:40 Freq: Status: Active Protocol: [id number].[id number] Document 04/22/19 09:40 SOHAIL (Rec: 04/22/19 09:42 SOHAIL [id number]) 6 Minute Walk Test Date Performed 04/22/19 Time Performed 09:00 Height 5 ft 3 in Weight: 56.699 kg Weight in Pounds 125.[address]: Jett Oliver Assistive device used: None Pre-test Oxygen Delivery Method Room Air Pulse Ox (%) 96 Pulse Rate (60-100 beats/min) 81 Dyspnea Jennifer Scale (0-10) 0 Exertion Jennifer Scale (6-20) 6 1st minute Oxygen Delivery Method Room Air Pulse Ox (%) 97 Pulse Rate (60-100 beats/min) 96 2nd minute Oxygen Delivery Method Room Air Pulse Ox (%) 95 Pulse Rate (60-100 beats/min) 93 3rd minute Oxygen Delivery Method Room Air Pulse Ox (%) 94 Pulse Rate (60-100 beats/min) 104 H 4th minute Oxygen Delivery Method Room Air Pulse Ox (%) 95 Pulse Rate (60-100 beats/min) 105 H 5th minute Oxygen Delivery Method Room Air Pulse Ox (%) 93 Pulse Rate (60-100 beats/min) 104 H 6th minute Oxygen Delivery Method Room Air Pulse Ox (%) 95 Pulse Rate (60-100 beats/min) 100 Dyspnea Jennifer Scale (0-10) 1 Exertion Jennifer Scale (6-20) 13 Post-test Oxygen Delivery Method Room Air Pulse Ox (%) 97 Pulse Rate (60-100 beats/min) 83 Full Laps Walked 19 Partial Lap, Number of Tiles Walked 18 Total Distance Walked (ft) 1139 - Interpretation Interpretation: The patient was able to ambulate 1139 feet over the course of 6 minutes on room air with no assistive devices or breaks. The patient did have significant desaturation from a baseline of 96% to as low as 93% with some reflexive tachycardia. These findings are consistent with deconditioning. - Recommendations Recommendations: No supplemental oxygen is indicated at this time.
== END ==
PROVIDERS: Referring Provider Internal Medicine Critical Care Medicine; Visit Provider Internal Medicine Critical Care Medicine
DX: R06.09 Other forms of dyspnea (principal); Z79.01 Long term (current) use of anticoagulants
CPT/HCPCS: 36416; 85610; 94618

== ENCOUNTER 2019-04-22 09:22 | Outpatient (RCR) | payer MEDICARE, OTHER, SELFPAY ==
[2019-02-20 13:43] VITALS: BMI 21.9
[2019-04-22 09:40] LABS: Prothrombin Time Fingerstick 27.9 SEC (11.9-14.4)
== END 2019-04-22 18:00 | disposition home or self-care (01) ==
LOC: MTLAB 09:22
PROVIDERS: Referring Provider Family Medicine; Visit Provider Family Medicine
DX: Z79.01 Long term (current) use of anticoagulants (principal)
CPT/HCPCS: 36416; 85610

== ENCOUNTER → 2019-04-23 07:39 | Outpatient (CLI) | payer MEDICARE, OTHER, SELFPAY ==
[2019-02-20 13:43] VITALS: BMI 21.9
--- NOTE | 2019-04-24 08:51 | PFT ---
INTRODUCTION: The patient is an 83-year-old female that presents for pulmonary function studies secondary to a diagnosis of dyspnea. Respiratory therapy reports good patient effort. Bronchodilators were used during testing. INTERPRETATION: Forced expiration spirometry demonstrates the presence of a moderate large airways obstructive ventilatory defect. There was a significant response to aerosolized bronchodilators, based upon change noted in FEV1. Spirograms are of good quality and do not plateau indicating slow emptying of the lungs. Body plethysmography was performed and reveals an elevated TLC and RV, indicative of underlying hyperinflation and air trapping. Diffusing capacity by single breath CO is reduced at 69% of predicted. IMPRESSION: Partially reversible moderate large airways obstructive ventilatory defect with associated hyperinflation, air trapping and mild reduction in diffusing capacity.
== END ==
PROVIDERS: Referring Provider Internal Medicine Critical Care Medicine; Visit Provider Internal Medicine Critical Care Medicine
DX: R06.00 Dyspnea, unspecified (principal)
CPT/HCPCS: 94060; 94726; 94729

== ENCOUNTER 2019-05-22 15:56 | Outpatient (RCR) | payer MEDICARE, OTHER, SELFPAY ==
[2019-05-01 09:51] VITALS: BMI 21.9
[2019-05-22 16:09] LABS: Prothrombin Time Fingerstick 28.8 SEC (11.9-14.4)
== END 2019-05-22 18:00 | disposition home or self-care (01) ==
LOC: MTLAB 15:56
PROVIDERS: Referring Provider Family Medicine; Visit Provider Family Medicine
DX: Z79.01 Long term (current) use of anticoagulants (principal)
CPT/HCPCS: 36416; 85610

== ENCOUNTER 2019-06-24 10:06 | Outpatient (RCR) | payer MEDICARE, OTHER, SELFPAY ==
[2019-05-01 09:51] VITALS: BMI 21.9
[2019-06-24 12:31] LABS: Prothrombin Time Fingerstick 26.6 SEC (11.9-14.4)
== END 2019-07-06 18:00 | disposition home or self-care (01) ==
LOC: MTLAB 10:06
PROVIDERS: Referring Provider Family Medicine; Visit Provider Family Medicine
DX: Z79.01 Long term (current) use of anticoagulants (principal)
CPT/HCPCS: 36416; 85610

== ENCOUNTER 2019-07-29 11:18 | Outpatient (RCR) | payer MEDICARE, OTHER, SELFPAY ==
[2019-05-01 09:51] VITALS: BMI 21.9
[2019-07-29 13:25] LABS: Prothrombin Time Fingerstick 30.7 SEC (11.9-14.4)
== END 2019-07-29 18:00 | disposition home or self-care (01) ==
LOC: MTLAB 11:18
PROVIDERS: Referring Provider Family Medicine; Visit Provider Family Medicine
DX: Z79.01 Long term (current) use of anticoagulants (principal)
CPT/HCPCS: 36416; 85610

== ENCOUNTER 2019-09-06 08:57 | Outpatient (RCR) | payer MEDICARE, OTHER, SELFPAY ==
[2019-05-01 09:51] VITALS: BMI 21.9
[2019-08-22 10:08] LABS: International Normalized Ratio 2.3; Prothrombin Time (Protime)PT. 25.2 SECONDS (11.7-14.9)
[2019-08-22 10:51] LABS: AST(SGOT) 16 U/L (15-37); Alanine Aminotransfer ALT/SGPT 28 U/L (13-56); Albumin, Serum 3.8 g/dL (3.2-5.0); Alkaline Phosphatase 83 U/L (45-117); Bilirubin, Direct 0.21 mg/dL (0.00-0.30); Cholesterol 135 mg/dL (200); Globulin 4.1 g/dL (2.2-4.2); High Density Lipoprotein 75 mg/dL; Protein, Total 7.9 g/dL (6.4-8.2); Triglycerides 45 mg/dL; Very Low Density Lipoprotein 9 mg/dL (5-40)
[2019-09-06 09:09] LABS: Mucous, Urine 0 SEEN /hpf (<or=2+); Red Blood Cells-Urine 0 SEEN /hpf (0-5); Squamous Epithelial Cells - UA 0 SEEN /hpf (5-10); White Blood Cells 0 SEEN /hpf (0-5)
[2019-09-06 10:18] LABS: Color, Urine Yellow (Yellow); Glucose, Dipstick Normal (Normal); Ketone-Dipstick Negative (Negative); Leukocyte Esterase-Dipstick 25 /ul (Negative); Nitrite-Dipstick Negative (Negative); Occult Blood-Urine Negative /ul (Negative); Protein-Dipstick Negative (Negative); Urine Bilirubin Dipstick Negative (Negative); Urine Clarity Clear (Clear); Urine Urobilinogen Normal (Normal)
[2019-09-06 10:22] LABS: International Normalized Ratio 1.9
[2019-09-06 10:39] LABS: Absolute Lymphocyte Count 1.25 X10^3/uL (0.83-4.51); Absolute Neutrophil Count 3.8 X10^3/uL (2.0-7.7); Basophil# 0.06 X10^3/uL; Eosinophil# 0.09 X10^3/uL; Eosinophils% 1.5 % (0-5); Hematocrit 42.3 % (37-47); Hemoglobin 14.2 g/dL (12.0-15.0); Lymphocyte # 1.25 X10^3/ul (4.0); Lymphocyte % 20.8 % (19-41); Mean Corp Hgb Conc 33.6 g/dL (32-36); Mean Corpuscular Hgb 32.1 pg (27.0-32.0); Mean Corpuscular Volume 95.7 fL (81-99); Mean Platelet Vol. 10.9 fl (6.2-12.0); Monocyte# 0.77 X10^3/uL; Monocyte% 12.8 % (0-10); NRBC Flagged by Analyzer 0 % (0-5); Neutrophil # 3.82 X10^3/uL (2.7-7.7); Neutrophil % 63.7 % (47-70); Platelet Count 178 K/mm3 (150-450); RBC Distribution Width CV 12.3 % (11.6-14.6); RBC Distribution Width SD 42.8 fl (35.1-43.9); Red Blood Count 4.42 M/mm3 (4.2-5.4)
[2019-09-06 10:55] LABS: AST(SGOT) 22 U/L (15-37); Alanine Aminotransfer ALT/SGPT 30 U/L (13-56); Albumin, Serum 4.1 g/dL (3.2-5.0); Alkaline Phosphatase 93 U/L (45-117); Anion Gap 5 (5-15); BUN 27 mg/dL (7-18); BUN/Creat Ratio 19.7 RATIO (10-20); Calcium,Total 9.8 mg/dL (8.5-10.1); Chloride 101 mmol/L (98-107); Creatinine, Serum 1.37 mg/dL (0.55-1.02); EST Glomerular Filtration Rate 39 mL/min (>60); Est Glom Filt Rate - Afr Amer 48 mL/min (>60); Globulin 4.2 g/dL (2.2-4.2); Glucose 97 mg/dL (74-106); Iron 189 ug/dL (50-170); Phosphorus 3.4 mg/dL (2.5-4.9); Potassium 4.8 mmol/L (3.5-5.1); Protein, Total 8.3 g/dL (6.4-8.2); Sodium Level 134 mmol/L (136-145); Thyroid Stim Hormone (TSH) 0.84 uIU/mL (0.358-3.74)
[2019-09-06 10:57] LABS: PTHIN 46.7 pg/mL (18.4-80.1); Vitamin D,25 Hydroxy 54.6 ng/mL (29.95-100.01)
[2019-09-06 10:58] LABS: Bacteria 1+ /hpf (None Seen)
[2019-09-06 11:35] LABS: Microalbumin,Random Urine 6.8 mg/L (NO RANGE EST.); Microalbumin:Creatinine Ratio 12.2 mg/g CRE (<30 mg/g CRE); Protein, Urine (Random) 10.7 mg/dL (<11.9); Protein:Creat Ratio 191 mg/g CRE (0-200)
== END 2019-09-06 18:00 | disposition home or self-care (01) ==
LOC: MTLAB 08:57
PROVIDERS: Internal Medicine Cardiovascular Disease; Referring Provider Family Medicine; Visit Provider Family Medicine
DX: N18.3 Chronic kidney disease, stage 3 (moderate) (principal); E78.00 Pure hypercholesterolemia, unspecified; D50.9 Iron deficiency anemia, unspecified; E55.9 Vitamin D deficiency, unspecified; Z79.01 Long term (current) use of anticoagulants
CPT/HCPCS: 36415; 80053; 80061; 80076; 81001; 82043; 82306; 82570; 83540; 83970; 84100; 84156; 84443; 85025; 85610

== ENCOUNTER 2019-09-17 09:11 | Outpatient (RCR) | payer MEDICARE, OTHER, SELFPAY ==
[2019-08-30 13:08] VITALS: BMI 22.2
[2019-09-17 09:21] LABS: Prothrombin Time Fingerstick 23.4 SEC (11.9-14.4)
== END 2019-09-17 18:00 | disposition home or self-care (01) ==
LOC: MTLAB 09:11
PROVIDERS: Referring Provider Family Medicine; Visit Provider Family Medicine
DX: Z79.01 Long term (current) use of anticoagulants (principal)
CPT/HCPCS: 36416; 85610

== ENCOUNTER 2019-10-21 11:52 | Outpatient (RCR) | payer MEDICARE, OTHER, SELFPAY ==
[2019-08-30 13:08] VITALS: BMI 22.2
[2019-10-21 12:00] LABS: Prothrombin Time Fingerstick 25.9 SEC (11.9-14.4)
== END 2019-10-21 18:00 | disposition home or self-care (01) ==
LOC: MTLAB 11:52
PROVIDERS: Referring Provider Family Medicine; Visit Provider Family Medicine
DX: Z79.01 Long term (current) use of anticoagulants (principal)
CPT/HCPCS: 36416; 85610

== ENCOUNTER → 2019-10-21 12:13 | Outpatient (CLI) | payer MEDICARE, OTHER, SELFPAY ==
[2019-08-30 13:08] VITALS: BMI 22.2
--- NOTE | 2019-10-21 12:20 | BI_ITS ---
MAMMOGRAPHY - BILATERAL SCREENING REASON FOR EXAM: Female, 84 years old. Routine annual screening examination. PERTINENT HISTORY: Aunt with breast cancer. TECHNIQUE: Digital bilateral breast hannah (3D mammographic acquisition) in the CC and MLO projections. 2-D mediolateral oblique (MLO) and craniocaudad (CC) views of both breasts were obtained. CAD: Full Field Digital Mammography with Computer Added Detection was performed. COMPARISON: Comparison is made with prior examination dated October 17, 2018 and September 20, 2017. FINDINGS: Breast Composition: There are scattered areas of fibroglandular density. There are no dominant masses or suspicious calcifications. No other significant abnormalities are identified. There has been no significant change since the prior study. BI/SCREEN MAMM (CAD) W/HANNAH BILAT IMPRESSION: Stable bilateral screening mammogram. Yearly follow-up mammogram recommended. (A) ASSESSMENT CATEGORY: BIRADS Category 1: Negative. A letter regarding these results will be sent to the patient by the facility within 30 days. Approximately 10% of breast cancers are not detected by mammography. A normal mammogram should not delay biopsy of a clinically suspicious abnormality. [id number] Electronically Signed: Ruben Cook, at 13:16 EDT , Service support ,
== END ==
PROVIDERS: Referring Provider Family Medicine; Visit Provider Family Medicine
DX: Z12.31 Encounter for screening mammogram for malignant neoplasm of breast (principal); Z80.3 Family history of malignant neoplasm of breast; Z79.01 Long term (current) use of anticoagulants
CPT/HCPCS: 36416; 77063; 77067; 85610

== ENCOUNTER 2019-11-25 10:59 | Outpatient (RCR) | payer MEDICARE, OTHER, SELFPAY ==
[2019-08-30 13:08] VITALS: BMI 22.2
[2019-11-25 11:20] LABS: Prothrombin Time Fingerstick 30.4 SEC (11.9-14.4)
== END 2019-12-05 18:00 | disposition home or self-care (01) ==
LOC: MTLAB 10:59
PROVIDERS: Referring Provider Family Medicine; Visit Provider Family Medicine
DX: Z79.01 Long term (current) use of anticoagulants (principal)
CPT/HCPCS: 36416; 85610

== ENCOUNTER 2019-12-26 12:33 | Outpatient (RCR) | payer MEDICARE, OTHER, SELFPAY ==
[2019-08-30 13:08] VITALS: BMI 22.2
[2019-12-26 12:56] LABS: Prothrombin Time Fingerstick 25.3 SEC (11.9-14.4)
== END 2019-12-26 18:00 | disposition home or self-care (01) ==
LOC: MTLAB 12:33
PROVIDERS: Referring Provider Family Medicine; Visit Provider Family Medicine
DX: Z79.01 Long term (current) use of anticoagulants (principal)
CPT/HCPCS: 36416; 85610

== ENCOUNTER 2020-01-29 13:36 | Outpatient (RCR) | payer MEDICARE, OTHER, SELFPAY ==
[2019-08-30 13:08] VITALS: BMI 22.2
[2020-01-29 13:56] LABS: Prothrombin Time Fingerstick 30.8 SEC (11.9-14.4)
== END 2020-01-29 18:00 | disposition home or self-care (01) ==
LOC: MTLAB 13:36
PROVIDERS: Referring Provider Family Medicine; Visit Provider Family Medicine
DX: Z79.01 Long term (current) use of anticoagulants (principal)
CPT/HCPCS: 36416; 85610

== ENCOUNTER 2020-02-20 13:20 | Outpatient (RCR) | payer MEDICARE, OTHER, SELFPAY ==
[2019-08-30 13:08] VITALS: BMI 22.2
[2020-02-20 13:31] LABS: Prothrombin Time Fingerstick 33.4 SEC (11.9-14.4)
== END 2020-02-20 18:00 | disposition home or self-care (01) ==
LOC: MTLAB 13:20
PROVIDERS: Referring Provider Family Medicine; Visit Provider Family Medicine
DX: Z79.01 Long term (current) use of anticoagulants (principal)
CPT/HCPCS: 36416; 85610

== ENCOUNTER → 2020-02-27 10:00 | Outpatient (CLI) | payer MEDICARE, OTHER, SELFPAY ==
[2019-08-30 13:08] VITALS: BMI 22.2
[2020-02-27 12:24] LABS: Absolute Lymphocyte Count 1.11 X10^3/uL (0.83-4.51); Absolute Neutrophil Count 3.8 X10^3/uL (2.0-7.7); Basophil# 0.06 X10^3/uL; Eosinophil# 0.08 X10^3/uL; Eosinophils% 1.3 % (0-5); Hematocrit 41.8 % (37-47); Hemoglobin 14.2 g/dL (12.0-15.0); Lymphocyte # 1.11 X10^3/ul (4.0); Lymphocyte % 18.5 % (19-41); Mean Corpuscular Volume 97.2 fL (81-99); Mean Platelet Vol. 10.9 fl (6.2-12.0); Monocyte# 0.92 X10^3/uL; Monocyte% 15.3 % (0-10); NRBC Flagged by Analyzer 0 % (0-5); Neutrophil % 63.4 % (47-70); Platelet Count 177 K/mm3 (150-450); RBC Distribution Width CV 12.2 % (11.6-14.6); RBC Distribution Width SD 43.8 fl (35.1-43.9)
[2020-02-27 12:57] LABS: ALB/GLOB Ratio 0.9 RATIO (0.9-2.4); AST(SGOT) 22 U/L (15-37); Alanine Aminotransfer ALT/SGPT 34 U/L (13-56); Albumin, Serum 3.9 g/dL (3.2-5.0); Alkaline Phosphatase 97 U/L (45-117); Anion Gap 6 (5-15); BUN 19 mg/dL (7-18); BUN/Creat Ratio 17.3 RATIO (10-20); Calcium,Total 9.5 mg/dL (8.5-10.1); Chloride 97 mmol/L (98-107); Cholesterol 145 mg/dL (200); EST Glomerular Filtration Rate 51 mL/min (>60); Est Glom Filt Rate - Afr Amer 61 mL/min (>60); Globulin 4.2 g/dL (2.2-4.2); Glucose 90 mg/dL (74-106); High Density Lipoprotein 64 mg/dL; Protein, Total 8.1 g/dL (6.4-8.2); Sodium Level 133 mmol/L (136-145); Thyroid Stim Hormone (TSH) 0.55 uIU/mL (0.358-3.74); Triglycerides 72 mg/dL; Very Low Density Lipoprotein 14 mg/dL (5-40)
[2020-02-27 13:08] LABS: AST(SGOT) 23 U/L (15-37); Alanine Aminotransfer ALT/SGPT 33 U/L (13-56); Alkaline Phosphatase 96 U/L (45-117); Globulin 3.9 g/dL (2.2-4.2); Protein, Total 7.9 g/dL (6.4-8.2)
== END ==
PROVIDERS: Internal Medicine Cardiovascular Disease; PCP Family Medicine
DX: I10 Essential (primary) hypertension (principal); D50.9 Iron deficiency anemia, unspecified; E78.00 Pure hypercholesterolemia, unspecified; E03.9 Hypothyroidism, unspecified
CPT/HCPCS: 36415; 80053; 80061; 80076; 84443; 85025

== ENCOUNTER 2020-03-27 10:20 | Outpatient (RCR) | payer MEDICARE, OTHER, SELFPAY ==
[2020-02-28 11:34] VITALS: BMI 22.1
== END 2020-04-06 18:00 | disposition home or self-care (01) ==
LOC: MTLAB 10:20
PROVIDERS: PCP Family Medicine; Referring Provider Family Medicine; Visit Provider Family Medicine
DX: Z79.01 Long term (current) use of anticoagulants (principal)
CPT/HCPCS: 36416; 85610

== ENCOUNTER → 2020-04-28 10:22 | Outpatient (CLI) | payer MEDICARE, OTHER, SELFPAY ==
[2020-02-28 11:34] VITALS: BMI 22.1
[2020-04-28 12:17] LABS: Hematocrit 41.2 % (37-47); Mean Corpuscular Volume 97.2 fL (81-99); Platelet Count 169 K/mm3 (150-450); RBC Distribution Width CV 12.3 % (11.6-14.6); Red Blood Count 4.24 M/mm3 (4.2-5.4)
[2020-04-28 12:23] LABS: BUN 27 mg/dL (7-18); BUN/Creat Ratio 21.3 RATIO (10-20); Calcium,Total 9.6 mg/dL (8.5-10.1); Chloride 97 mmol/L (98-107); Creatinine, Serum 1.27 mg/dL (0.55-1.02); EST Glomerular Filtration Rate 43 mL/min (>60); Est Glom Filt Rate - Afr Amer 52 mL/min (>60); Glucose 88 mg/dL (74-106); Phosphorus 3.3 mg/dL (2.5-4.9); Potassium 4.2 mmol/L (3.5-5.1); Sodium Level 133 mmol/L (136-145)
[2020-04-28 12:29] LABS: Protein, Urine (Random) 6.9 mg/dL (<11.9); Protein:Creat Ratio 133 mg/g CRE (0-200)
[2020-04-28 12:30] LABS: Vitamin D,25 Hydroxy 82.7 ng/mL
[2020-04-28 12:38] LABS: PTHIN 55.1 pg/mL (18.4-80.1)
== END ==
PROVIDERS: PCP Family Medicine; Referring Provider Internal Medicine Nephrology; Visit Provider Internal Medicine Nephrology
DX: N18.3 Chronic kidney disease, stage 3 (moderate) (principal); D50.9 Iron deficiency anemia, unspecified; E55.9 Vitamin D deficiency, unspecified
CPT/HCPCS: 36415; 80069; 82306; 82570; 83970; 84156; 85027

== ENCOUNTER 2020-06-04 13:18 | Outpatient (RCR) | payer MEDICARE, OTHER, SELFPAY ==
[2020-02-28 11:34] VITALS: BMI 22.1
[2020-05-10 12:40] VITALS: BMI 22.2
[2020-06-04 13:31] LABS: Prothrombin Time Fingerstick 27.3 SEC (11.9-14.4)
== END 2020-06-04 18:00 | disposition home or self-care (01) ==
LOC: MTLAB 13:18
PROVIDERS: PCP Family Medicine; Referring Provider Family Medicine; Visit Provider Family Medicine
DX: Z79.01 Long term (current) use of anticoagulants (principal)
CPT/HCPCS: 36416; 85610

== ENCOUNTER 2020-07-06 11:58 | Outpatient (RCR) | payer MEDICARE, OTHER, SELFPAY ==
[2020-05-10 12:40] VITALS: BMI 22.2
[2020-07-06 12:10] LABS: Prothrombin Time Fingerstick 33.7 SEC (11.9-14.4)
== END 2020-07-06 18:00 | disposition home or self-care (01) ==
LOC: MTLAB 11:58
PROVIDERS: PCP Family Medicine; Referring Provider Family Medicine; Visit Provider Family Medicine
DX: Z79.01 Long term (current) use of anticoagulants (principal)
CPT/HCPCS: 36416; 85610

== ENCOUNTER 2020-07-27 09:49 | Outpatient (RCR) | payer MEDICARE, OTHER, SELFPAY ==
[2020-05-10 12:40] VITALS: BMI 22.2
[2020-07-27 10:06] LABS: Prothrombin Time Fingerstick 26.8 SEC (11.9-14.4)
== END 2020-07-27 18:00 | disposition home or self-care (01) ==
LOC: MTLAB 09:49
PROVIDERS: PCP Family Medicine; Referring Provider Family Medicine; Visit Provider Family Medicine
DX: Z79.01 Long term (current) use of anticoagulants (principal)
CPT/HCPCS: 36416; 85610

== ENCOUNTER 2020-08-21 10:53 | Outpatient (RCR) | payer MEDICARE, OTHER, SELFPAY ==
[2020-05-10 12:40] VITALS: BMI 22.2
[2020-08-21 11:15] LABS: Prothrombin Time Fingerstick 27.8 SEC (11.9-14.4)
== END 2020-08-21 18:00 | disposition home or self-care (01) ==
LOC: MTLAB 10:53
PROVIDERS: PCP Family Medicine; Referring Provider Family Medicine; Visit Provider Family Medicine
DX: Z79.01 Long term (current) use of anticoagulants (principal)
CPT/HCPCS: 36416; 85610

== ENCOUNTER 2020-08-28 11:05 | Outpatient (RCR) | payer MEDICARE, OTHER, SELFPAY ==
[2020-05-10 12:40] VITALS: BMI 22.2
== END 2020-08-28 23:59 ==
LOC: IMMUN 11:05
PROVIDERS: PCP Family Medicine; Visit Provider Family Medicine
DX: Z23 Encounter for immunization (principal)
CPT/HCPCS: 0011A; 0012A; 91301

== ENCOUNTER 2020-09-25 07:59 | Outpatient (RCR) | payer MEDICARE, OTHER, SELFPAY ==
[2020-05-10 12:40] VITALS: BMI 22.2
[2020-09-25 08:10] LABS: Prothrombin Time Fingerstick 31.7 SEC (11.9-14.4)
== END 2020-09-25 18:00 | disposition home or self-care (01) ==
LOC: MTLAB 07:59
PROVIDERS: PCP Family Medicine; Referring Provider Family Medicine; Visit Provider Family Medicine
DX: Z79.01 Long term (current) use of anticoagulants (principal)
CPT/HCPCS: 36416; 85610

== ENCOUNTER 2020-10-23 11:59 | Outpatient (RCR) | payer MEDICARE, OTHER, SELFPAY ==
[2020-05-10 12:40] VITALS: BMI 22.2
[2020-10-23 14:01] LABS: INR Fingerstick 2.6
== END 2020-10-23 18:00 | disposition home or self-care (01) ==
LOC: MTLAB 11:59
PROVIDERS: PCP Family Medicine; Referring Provider Family Medicine; Visit Provider Family Medicine
DX: Z79.01 Long term (current) use of anticoagulants (principal)
CPT/HCPCS: 36416; 85610

== ENCOUNTER → 2020-11-05 09:34 | Outpatient (CLI) | payer MEDICARE, OTHER, SELFPAY ==
[2020-05-10 12:40] VITALS: BMI 22.2
[2020-11-05 12:21] LABS: Absolute Lymphocyte Count 1.11 X10^3/uL (0.83-4.51); Basophil# 0.06 X10^3/uL; Basophil% 0.7 % (0-1); Eosinophil# 0.07 X10^3/uL; Eosinophils% 0.9 % (0-5); Hematocrit 42.8 % (37-47); Hemoglobin 14.2 g/dL (12.0-15.0); Lymphocyte # 1.11 X10^3/ul (4.0); Lymphocyte % 13.5 % (19-41); Mean Corp Hgb Conc 33.2 g/dL (32-36); Mean Corpuscular Hgb 32.3 pg (27.0-32.0); Mean Corpuscular Volume 97.5 fL (81-99); Mean Platelet Vol. 11.1 fl (6.2-12.0); Monocyte# 0.98 X10^3/uL; NRBC Flagged by Analyzer 0 % (0-5); Neutrophil # 5.96 X10^3/uL (2.7-7.7); Neutrophil % 72.7 % (47-70); Platelet Count 185 K/mm3 (150-450); RBC Distribution Width CV 12.2 % (11.6-14.6); RBC Distribution Width SD 44.4 fl (35.1-43.9); Red Blood Count 4.39 M/mm3 (4.2-5.4); White Blood Count 8.2 K/mm3 (4.4-11.0)
[2020-11-05 12:48] LABS: AST(SGOT) 17 U/L (15-37); Alanine Aminotransfer ALT/SGPT 25 U/L (13-56); Albumin, Serum 4.2 g/dL (3.2-5.0); Alkaline Phosphatase 102 U/L (45-117); Anion Gap 5 (5-15); BUN 21 mg/dL (7-18); BUN/Creat Ratio 18.4 RATIO (10-20); Chloride 99 mmol/L (98-107); Cholesterol 151 mg/dL (200); Creatinine, Serum 1.14 mg/dL (0.55-1.02); EST Glomerular Filtration Rate 48 mL/min (>60); Est Glom Filt Rate - Afr Amer 59 mL/min (>60); Globulin 4.4 g/dL (2.2-4.2); Glucose 97 mg/dL (74-106); High Density Lipoprotein 82 mg/dL; Protein, Total 8.6 g/dL (6.4-8.2); Sodium Level 133 mmol/L (136-145); Thyroid Stim Hormone (TSH) 0.94 uIU/mL (0.358-3.74); Triglycerides 68 mg/dL; Very Low Density Lipoprotein 14 mg/dL (5-40)
== END ==
PROVIDERS: PCP Family Medicine; Referring Provider Family Medicine; Visit Provider Family Medicine
DX: Z00.00 Encounter for general adult medical examination without abnormal findings (principal); E78.00 Pure hypercholesterolemia, unspecified; I10 Essential (primary) hypertension; I48.91 Unspecified atrial fibrillation
CPT/HCPCS: 36415; 80053; 80061; 84443; 85025

== ENCOUNTER → 2020-11-20 10:05 | Outpatient (CLI) | payer MEDICARE, OTHER, SELFPAY ==
[2020-05-10 12:40] VITALS: BMI 22.2
[2020-11-11 13:52] VITALS: BMI 21.3
--- NOTE | 2020-11-20 10:23 | BI_ITS ---
MAMMOGRAPHY - BILATERAL SCREENING REASON FOR EXAM: Female, 85 years old. Routine annual screening examination. PERTINENT HISTORY: Aunt with breast cancer. TECHNIQUE: Digital bilateral breast hannah (3D mammographic acquisition) in the CC and MLO projections. 2-D mediolateral oblique (MLO) and craniocaudad (CC) views of both breasts were obtained. CAD: Full Field Digital Mammography with Computer Added Detection was performed. COMPARISON: Comparison is made with prior study of 10/21/2019 and 10/17/2018. FINDINGS: Breast Composition: There are scattered areas of fibroglandular density. There are no dominant masses or suspicious calcifications. No other significant abnormalities are identified. There has been no significant change since the prior study. BI/SCRN MAMM (CAD)W/HANNHA BILAT IMPRESSION: Stable bilateral screening mammogram. Yearly follow-up mammogram recommended. (A) ASSESSMENT CATEGORY: BIRADS Category 1: Negative. A letter regarding these results will be sent to the patient by the facility within 30 days. Approximately 10% of breast cancers are not detected by mammography. A normal mammogram should not delay biopsy of a clinically suspicious abnormality. [id number] Electronically Signed: Ruben Cook MD at 11:07 EDT , Service support ,
== END ==
PROVIDERS: PCP Family Medicine; Referring Provider Family Medicine; Visit Provider Family Medicine
DX: Z12.31 Encounter for screening mammogram for malignant neoplasm of breast (principal)
CPT/HCPCS: 77063; 77067

== ENCOUNTER 2020-11-27 11:45 | Outpatient (RCR) | payer MEDICARE, OTHER, SELFPAY ==
[2020-05-10 12:40] VITALS: BMI 22.2
[2020-11-11 13:52] VITALS: BMI 21.3
[2020-11-27 12:01] LABS: INR Fingerstick 2.8; Prothrombin Time Fingerstick 31.4 SEC (11.9-14.4)
== END 2020-11-27 18:00 | disposition home or self-care (01) ==
LOC: MTLAB 11:45
PROVIDERS: PCP Family Medicine; Referring Provider Family Medicine; Visit Provider Family Medicine
DX: Z79.01 Long term (current) use of anticoagulants (principal)
CPT/HCPCS: 36416; 85610

== ENCOUNTER 2020-12-31 10:17 | Outpatient (RCR) | payer MEDICARE, OTHER, SELFPAY ==
[2020-11-11 13:52] VITALS: BMI 21.3
[2020-12-31 10:25] LABS: INR Fingerstick 2.7; Prothrombin Time Fingerstick 30.3 SEC (11.9-14.4)
== END 2020-12-31 18:00 | disposition home or self-care (01) ==
LOC: MTLAB 10:17
PROVIDERS: PCP Family Medicine; Referring Provider Family Medicine; Visit Provider Family Medicine
DX: Z79.01 Long term (current) use of anticoagulants (principal)
CPT/HCPCS: 36416; 85610

== ENCOUNTER 2021-02-01 10:40 | Outpatient (RCR) | payer MEDICARE, OTHER, SELFPAY ==
[2020-11-11 13:52] VITALS: BMI 21.3
[2021-02-01 11:10] LABS: INR Fingerstick 2.3; Prothrombin Time Fingerstick 26.4 SEC (11.9-14.4)
== END 2021-02-01 18:00 | disposition home or self-care (01) ==
LOC: MTLAB 10:40
PROVIDERS: PCP Family Medicine; Referring Provider Family Medicine; Visit Provider Family Medicine
DX: Z79.01 Long term (current) use of anticoagulants (principal)
CPT/HCPCS: 36416; 85610

== ENCOUNTER 2021-03-01 09:29 | Outpatient (RCR) | payer MEDICARE, OTHER, SELFPAY ==
[2020-11-11 13:52] VITALS: BMI 21.3
[2021-03-01 10:40] LABS: Absolute Lymphocyte Count 1.16 X10^3/uL (0.83-4.51); Absolute Neutrophil Count 3.4 X10^3/uL (2.0-7.7); Basophil# 0.06 X10^3/uL; Basophil% 1.1 % (0-1); Eosinophil# 0.09 X10^3/uL; Eosinophils% 1.6 % (0-5); Hematocrit 41.7 % (37-47); Lymphocyte # 1.16 X10^3/ul (0.83-4.51); Lymphocyte % 20.7 % (19-41); Mean Corp Hgb Conc 33.6 g/dL (32-36); Mean Corpuscular Volume 95.2 fL (81-99); Mean Platelet Vol. 10.4 fl (6.2-12.0); Monocyte# 0.85 X10^3/uL; Monocyte% 15.2 % (0-10); NRBC Flagged by Analyzer 0 % (0-5); Neutrophil # 3.42 X10^3/uL (2.7-7.7); Platelet Count 188 K/mm3 (150-450); RBC Distribution Width CV 12.1 % (11.6-14.6); RBC Distribution Width SD 42.5 fl (35.1-43.9); Red Blood Count 4.38 M/mm3 (4.2-5.4); White Blood Count 5.6 K/mm3 (4.4-11.0)
[2021-03-01 10:51] LABS: International Normalized Ratio 2.2; Prothrombin Time (Protime)PT. 23.4 SECONDS (11.7-14.9)
[2021-03-01 11:22] LABS: ALB/GLOB Ratio 0.9 RATIO (0.9-2.4); AST(SGOT) 19 U/L (15-37); Alanine Aminotransfer ALT/SGPT 26 U/L (13-56); Albumin, Serum 3.9 g/dL (3.2-5.0); Alkaline Phosphatase 93 U/L (45-117); Anion Gap 6 (5-15); BUN 18 mg/dL (7-18); BUN/Creat Ratio 16.7 RATIO (10-20); Calcium,Total 9.9 mg/dL (8.5-10.1); Chloride 101 mmol/L (98-107); Cholesterol 147 mg/dL (200); Creatinine, Serum 1.08 mg/dL (0.55-1.02); EST Glomerular Filtration Rate 51 mL/min (>60); Est Glom Filt Rate - Afr Amer 62 mL/min (>60); Globulin 4.5 g/dL (2.2-4.2); Glucose 93 mg/dL (74-106); High Density Lipoprotein 73 mg/dL; Iron 125 ug/dL (50-170); Potassium 3.9 mmol/L (3.5-5.1); Protein, Total 8.4 g/dL (6.4-8.2); Sodium Level 135 mmol/L (136-145); Thyroid Stim Hormone (TSH) 0.79 uIU/mL (0.358-3.74); Triglycerides 57 mg/dL; Very Low Density Lipoprotein 11 mg/dL (5-40)
== END 2021-03-01 18:00 | disposition home or self-care (01) ==
LOC: MTLAB 09:29
PROVIDERS: PCP Family Medicine; Referring Provider Family Medicine; Visit Provider Family Medicine
DX: D50.9 Iron deficiency anemia, unspecified (principal); I10 Essential (primary) hypertension; E78.00 Pure hypercholesterolemia, unspecified; Z79.01 Long term (current) use of anticoagulants
CPT/HCPCS: 36415; 80053; 80061; 83540; 84443; 85025; 85610

== ENCOUNTER 2021-04-02 13:24 | Outpatient (RCR) | payer MEDICARE, OTHER, SELFPAY ==
[2020-11-11 13:52] VITALS: BMI 21.3
[2021-04-02 13:36] LABS: INR Fingerstick 2.1; Prothrombin Time Fingerstick 24.1 SEC (11.9-14.4)
== END 2021-04-02 18:00 | disposition home or self-care (01) ==
LOC: MTLAB 13:24
PROVIDERS: PCP Family Medicine; Referring Provider Family Medicine; Visit Provider Family Medicine
DX: Z79.01 Long term (current) use of anticoagulants (principal)
CPT/HCPCS: 36416; 85610

== ENCOUNTER 2021-05-03 10:26 | Outpatient (RCR) | payer MEDICARE, OTHER, SELFPAY ==
[2021-04-07 01:37] VITALS: BMI 21.3
[2021-05-03 12:30] LABS: International Normalized Ratio 2.9; Prothrombin Time (Protime)PT. 29.5 SECONDS (11.7-14.9)
[2021-05-03 12:39] LABS: Anion Gap 9 (5-15); BUN 18 mg/dL (7-18); BUN/Creat Ratio 17.3 RATIO (10-20); Calcium,Total 9.5 mg/dL (8.5-10.1); Chloride 98 mmol/L (98-107); Creatinine, Serum 1.04 mg/dL (0.55-1.02); EST Glomerular Filtration Rate 54 mL/min (>60); Est Glom Filt Rate - Afr Amer 65 mL/min (>60); Glucose 98 mg/dL (74-106); Potassium 4.2 mmol/L (3.5-5.1); Sodium Level 135 mmol/L (136-145)
[2021-05-03 12:50] LABS: Protein, Urine (Random) 12.4 mg/dL (<11.9); Protein:Creat Ratio 193 mg/g CRE (0-200)
== END 2021-05-03 18:00 | disposition home or self-care (01) ==
LOC: MTLAB 10:26
PROVIDERS: Internal Medicine Nephrology; PCP Family Medicine; Referring Provider Family Medicine; Visit Provider Family Medicine
DX: I12.9 Hypertensive chronic kidney disease with stage 1 through stage 4 chronic kidney disease, or unspecified chronic kidney disease (principal); N18.30 Chronic kidney disease, stage 3 unspecified; E78.00 Pure hypercholesterolemia, unspecified; D50.9 Iron deficiency anemia, unspecified; Z79.01 Long term (current) use of anticoagulants
CPT/HCPCS: 36415; 80048; 82570; 84156; 85610

== ENCOUNTER 2021-06-02 11:52 | Outpatient (RCR) | payer MEDICARE, OTHER, SELFPAY ==
[2021-05-07 02:14] VITALS: BMI 21.3
[2021-06-02 12:00] LABS: INR Fingerstick 2.8; Prothrombin Time Fingerstick 31.4 SEC (11.9-14.4)
== END 2021-06-06 04:02 | disposition home or self-care (01) ==
LOC: MTLAB 11:52
PROVIDERS: PCP Family Medicine; Referring Provider Family Medicine; Visit Provider Family Medicine
DX: Z79.01 Long term (current) use of anticoagulants (principal)
CPT/HCPCS: 36416; 85610

== ENCOUNTER 2021-06-15 16:09 | Emergency (ER) | payer MEDICARE, OTHER, SELFPAY ==
[2021-06-15 16:09] VITALS: BP 127/88; PULSE 70; RESP 16; TEMP 36.2; O2SAT 96; BMI 21.2
--- NOTE | 2021-06-15 21:13 | EDS_ITS ---
HPI History of Present Illness Chief Complaint: Laceration Narrative Narrative: Patient is an 85-year-old female who takes Coumadin secondary to history of atrial fibrillation. She states earlier today she was cutting an apple when the apple slipped out of her left hand and the paring knife cut the left fourth finger. She states that she cannot get the bleeding stopped as she is on Coumadin and therefore comes in for evaluation. She does states that her last INR was checked just a few days ago and was normal at 2.8 PFSH [facility] Medical History (Updated 06/15/21 @ 21:[address] Polo Gomez, DO) Dyspnea Essential hypertension Hypothyroidism, iatrogenic Longstanding persistent atrial fibrillation Mitral valve disorder Other specified transient cerebral ischemias Pure hypercholesterolemia Home Medications cholecalciferol (vitamin D3) 2,000 unit PO DAILY 10/09/16 [History Last Taken Unknown] ferrous sulfate 325 mg PO DAILY 10/09/16 [History Last Taken Unknown] levothyroxine 75 mcg PO DAILY 10/09/16 [History Last Taken Unknown] lisinopril-hydrochlorothiazide 1 tab PO BID 10/09/16 [History Last Taken Unknown] multivitamin with folic acid 1 tab PO DAILY 10/09/16 [History Last Taken Unknown] spotu-4w-zpv-epa-fish oil 1 ea PO DAILY 10/09/16 [History Last Taken Unknown] rosuvastatin 5 mg PO DAILY 10/09/16 [History Last Taken Unknown] warfarin 6 mg tablet 6 mg PO MOTUTHFRSA 08/08/18 [History Last Taken Unknown] warfarin 5 mg PO SUWE 12/01/18 [History Last Taken Unknown] calcium carbonate 500 mg calcium (1,250 mg) tablet 500 mg PO DAILY 02/20/19 [History Last Taken Unknown] vitamin B complex 1 tab PO .QOD tab 02/20/19 [History Last Taken Unknown] albuterol sulfate 90 mcg/actuation breath activated powder inhaler 2 inh INHALATION Q4H PRN #1 ea 05/20/19 [Rx Last Taken Unknown] docusate sodium 100 mg capsule 50 mg PO DAILY PRN 08/30/19 [History Last Taken Unknown] cyclobenzaprine 5 mg tablet 5 mg PO QHS PRN tab 11/11/20 [History Last Taken Unknown] diltiazem HCl 180 mg capsule,extended release 24 hr 180 mg PO DAILY #90 cap 05/13/21 [Rx Last Taken Unknown] Allergy/AdvReac Type Severity Reaction Status Date / Time No Known Allergies Allergy Verified 06/15/21 16:11 Family History Mother CAD (coronary artery disease) Brother Cancer Brother Cancer Epilepsy Sister Diabetes Sister Diabetes Sister CVA (cerebral vascular accident) Surgical History History of appendectomy History of hysterectomy Social History Smoking Status: Former smoker Tobacco: How many years used: 25 how long ago did patient quit smokin, 0.5ppd second hand exposure: Yes alcohol intake: never substance use type: does not use caffeine: Yes Type: other Number of servings: 1 what type of physical activity do you participate in: none seatbelt use: always ROS ROS ED Constitutional Constitutional ED: Denies chills or fever(s) Cardiovascular Cardiovascular: Denies chest pain Respiratory/Chest Respiratory/Chest: Denies cough or dyspnea Gastrointestinal Gastrointestinal: Denies abdominal pain, diarrhea, nausea or vomiting Genitourinary Genitourinary ED: Denies dysuria Musculoskeletal Musculoskeletal: Denies myalgias Integumentary Reports other Details: Positive hand/finger laceration ; Denies rash Neurologic Neurologic: Denies headache(s) Hematologic/Lymphatic Hematologic/Lymphatic: Reports easy bleeding and easy bruising EXAM Physical Exam Const Vital Signs: 06/15/21 16:09 Temperature 97.2 F L Temperature Source Temporal Pulse Rate 70 Respiratory Rate 16 Blood Pressure 127/88 H Blood Pressure Mean 101 Pulse Ox 96 Oxygen Delivery Method Room Air Positive well nourished and well developed General Appearance ED: well developed Eyes PERRL and EOMs intact bilaterally Neck supple Resp normal respiratory effort and clear to auscultation bilaterally Cardio regular rate and regular rhythm Extremity Extremity Narrative: Left upper extremity is neurovascularly intact. There is a linear 1 cm laceration that is subcutaneous layer deep to the dorsal aspect of the left distal fourth finger. There is minimal ooze of blood but no foreign body. No ligamentous or tendon injury noted Neuro oriented x3 and CN's II-XII intact bilaterally Sensorium / Orientation: alert Motor Exam: strength 5/5 throughout Psych mental status grossly normal Skin no rashes or lesions noted Skin Narrative: Laceration to the left fourth finger as documented above MDM MDM MDM Narrative Medical decision making narrative: Patient presented with a simple laceration to her left fourth finger. There is no ligamentous or tendon injury or signs of arterial involvement so I felt no need for imaging or blood work. The laceration was sutured as documented below. Following closure patient had no further bleeding and is now safe for discharge Patient had the right hand/finger cleaned with chlorhexidine. It was anesthetized with 3 mL of 1% lidocaine without epinephrine in local fashion. The wound was copiously irrigated with normal saline. Then three 4-0 Ethilon sutures were placed in simple interrupted fashion bring the wound together good approximation. Patient tolerated procedure well without complication Discharge Plan Triage Chief Complaint: Laceration ED Provider: Polo Gomez Dx/Rx/DC Orders Clinical Impression: Finger laceration, Current use of fpc anticoagulation Instructions: ED Laceration Hand with ... Prescriptions: No Action calcium carbonate [Calcium 500] 500 mg calcium (1,250 mg) tablet 500 mg PO DAILY RF: 0 vitamin B complex [B Complex-Vitamin B12] Tablet 1 tab PO .QOD RF: 0 cyclobenzaprine 5 mg tablet 5 mg PO QHS PRNRF: 0 diltiazem HCl 180 mg capsule,extended release 24hr 180 mg PO DAILY Qty: 90 RF: 3 lisinopril-hydrochlorothiazide 1 TABLET tablet 1 tab PO BID RF: 0 levothyroxine 75 MCG tablet 75 mcg PO DAILY RF: 0 ferrous sulfate 325 MG tablet 325 mg PO DAILY RF: 0 rosuvastatin 5 MG tablet 5 mg PO DAILY RF: 0 cholecalciferol (vitamin D3) 2,000 UNIT capsule 2,000 unit PO DAILY RF: 0 multivitamin with folic acid 1 TABLET tablet 1 tab PO DAILY RF: 0 sksqx-1b-ome-epa-fish oil 1 EACH capsule 1 ea PO DAILY RF: 0 docusate sodium 100 mg capsule 50 mg PO DAILY PRN (Reason: CONSTIPATION) RF: 0 warfarin 6 mg tablet 6 mg PO MOTUTHFRSA RF: 0 warfarin 5 MG tablet 5 mg PO SUWE RF: 0 ProAir RespiClick 90 mcg/actuation aerosol powdr breath activated 2 inh INHALATION Q4H PRN (Reason: shortness of breath or wheezing) Qty: 1 RF: 6 Primary Care Provider: Willi Bae Referrals: Willi Bae MD [Primary Care Provider] - Activity Restrictions/Additional Instructions: Please return to the ER or see your family doctor to have sutures removed in the next 7 to 10 days Disposition Disposition: Home, Self Care
[2021-06-15 21:28] VITALS: BP 126/81; PULSE 75; RESP 14; O2SAT 98
== END 2021-06-15 21:29 | disposition home or self-care (01) ==
PROVIDERS: Emergency Provider Emergency Medicine; PCP Family Medicine
DX: S61.215A Laceration without foreign body of left ring finger without damage to nail, initial encounter (principal); W26.0XXA Contact with knife, initial encounter; Y93.G1 Activity, food preparation and clean up; Y92.9 Unspecified place or not applicable; Y99.9 Unspecified external cause status; I48.11 Longstanding persistent atrial fibrillation; I10 Essential (primary) hypertension; E03.9 Hypothyroidism, unspecified; E78.00 Pure hypercholesterolemia, unspecified; Z79.01 Long term (current) use of anticoagulants; Z79.890 Hormone replacement therapy; Z79.899 Other long term (current) drug therapy; Z87.891 Personal history of nicotine dependence
CPT/HCPCS: 12001; 99282

== ENCOUNTER 2021-07-05 11:56 | Outpatient (RCR) | payer MEDICARE, OTHER, SELFPAY ==
[2021-06-06 04:02] VITALS: BMI 21.3
[2021-07-05 12:16] LABS: INR Fingerstick 2.5; Prothrombin Time Fingerstick 28.4 SEC (11.9-14.4)
== END 2021-07-06 18:00 | disposition home or self-care (01) ==
LOC: MTLAB 11:56
PROVIDERS: PCP Family Medicine; Referring Provider Family Medicine; Visit Provider Family Medicine
DX: Z79.01 Long term (current) use of anticoagulants (principal)
CPT/HCPCS: 36416; 85610

== ENCOUNTER 2021-08-04 11:14 | Outpatient (RCR) | payer MEDICARE, OTHER, SELFPAY ==
[2021-07-07 04:22] VITALS: BMI 21.3
[2021-08-04 11:21] LABS: INR Fingerstick 2.8; Prothrombin Time Fingerstick 31.4 SEC (11.9-14.4)
== END 2021-08-07 18:00 | disposition home or self-care (01) ==
LOC: MTLAB 11:14
PROVIDERS: PCP Family Medicine; Referring Provider Family Medicine; Visit Provider Family Medicine
DX: Z79.01 Long term (current) use of anticoagulants (principal)
CPT/HCPCS: 36416; 85610

== ENCOUNTER 2021-09-06 13:18 | Outpatient (RCR) | payer MEDICARE, OTHER, SELFPAY ==
[2021-08-08 19:46] VITALS: BMI 21.3
[2021-09-06 13:36] LABS: INR Fingerstick 2.8; Prothrombin Time Fingerstick 32.3 SEC (11.9-14.4)
== END 2021-09-06 18:00 | disposition home or self-care (01) ==
LOC: MTLAB 13:18
PROVIDERS: PCP Family Medicine; Referring Provider Family Medicine; Visit Provider Family Medicine
DX: Z79.01 Long term (current) use of anticoagulants (principal)
CPT/HCPCS: 36416; 85610

== ENCOUNTER 2021-10-07 14:17 | Outpatient (RCR) | payer MEDICARE, OTHER, SELFPAY ==
[2021-09-07 02:38] VITALS: BMI 21.3
[2021-10-07 14:31] LABS: INR Fingerstick 2.5; Prothrombin Time Fingerstick 28.9 SEC (11.7-14.9)
== END 2021-11-04 18:00 | disposition home or self-care (01) ==
LOC: MTLAB 14:17
PROVIDERS: PCP Family Medicine; Referring Provider Family Medicine; Visit Provider Family Medicine
DX: Z79.01 Long term (current) use of anticoagulants (principal)
CPT/HCPCS: 36416; 85610

== ENCOUNTER 2021-11-10 11:16 | Outpatient (RCR) | payer MEDICARE, OTHER, SELFPAY ==
[2021-11-05 01:49] VITALS: BMI 21.3
[2021-11-10 11:31] LABS: INR Fingerstick 2.1; Prothrombin Time Fingerstick 24.5 SEC (11.7-14.9)
== END 2021-11-10 18:00 | disposition home or self-care (01) ==
LOC: MTLAB 11:16
PROVIDERS: PCP Family Medicine; Referring Provider Family Medicine; Visit Provider Family Medicine
DX: Z79.01 Long term (current) use of anticoagulants (principal)
CPT/HCPCS: 36416; 85610

== ENCOUNTER 2021-12-20 11:25 | Outpatient (RCR) | payer MEDICARE, OTHER, SELFPAY ==
[2021-12-05 05:17] VITALS: BMI 21.3
[2021-12-20 11:40] LABS: INR Fingerstick 2.4; Prothrombin Time Fingerstick 28.1 SEC (11.7-14.9)
== END 2021-12-20 18:00 | disposition home or self-care (01) ==
LOC: MTLAB 11:25
PROVIDERS: PCP Family Medicine; Referring Provider Family Medicine; Visit Provider Family Medicine
DX: Z79.01 Long term (current) use of anticoagulants (principal)
CPT/HCPCS: 36416; 85610

== ENCOUNTER 2022-01-13 11:26 | Outpatient (RCR) | payer MEDICARE, OTHER, SELFPAY ==
[2022-01-04 22:02] VITALS: BMI 21.3
[2022-01-13 11:36] LABS: INR Fingerstick 2.7
== END 2022-02-03 16:00 | disposition home or self-care (01) ==
LOC: MTLAB 11:26
PROVIDERS: PCP Family Medicine; Referring Provider Family Medicine; Visit Provider Family Medicine
DX: Z79.01 Long term (current) use of anticoagulants (principal)
CPT/HCPCS: 36415; 36416; 85610

== ENCOUNTER 2022-02-14 11:00 | Outpatient (RCR) | payer MEDICARE, OTHER, SELFPAY ==
[2022-02-04 10:05] VITALS: BMI 21.3
[2022-02-14 14:01] LABS: INR Fingerstick 2.1; Prothrombin Time Fingerstick 24.2 SEC (11.7-14.9)
== END 2022-03-06 03:49 | disposition home or self-care (01) ==
LOC: MTLAB 11:00
PROVIDERS: PCP Family Medicine; Referring Provider Family Medicine; Visit Provider Family Medicine
DX: Z79.01 Long term (current) use of anticoagulants (principal)
CPT/HCPCS: 36416; 85610

== ENCOUNTER 2022-03-18 11:09 | Outpatient (RCR) | payer MEDICARE, OTHER, SELFPAY ==
[2022-03-06 03:49] VITALS: BMI 21.3
[2022-03-18 11:45] LABS: INR Fingerstick 2.4; Prothrombin Time Fingerstick 27.7 SEC (11.7-14.9)
== END 2022-03-18 18:00 | disposition home or self-care (01) ==
LOC: MTLAB 11:09
PROVIDERS: PCP Family Medicine; Referring Provider Family Medicine; Visit Provider Family Medicine
DX: Z79.01 Long term (current) use of anticoagulants (principal)
CPT/HCPCS: 36416; 85610

== ENCOUNTER 2022-04-20 11:18 | Outpatient (RCR) | payer MEDICARE, OTHER, SELFPAY ==
[2022-04-07 01:12] VITALS: BMI 21.3
[2022-04-20 11:26] LABS: INR Fingerstick 2.4; Prothrombin Time Fingerstick 27.8 SEC (11.7-14.9)
== END 2022-04-20 18:00 | disposition home or self-care (01) ==
LOC: MTLAB 11:18
PROVIDERS: PCP Family Medicine; Referring Provider Family Medicine; Visit Provider Family Medicine
DX: Z79.01 Long term (current) use of anticoagulants (principal)
CPT/HCPCS: 36416; 85610

== ENCOUNTER 2022-05-24 13:34 | Outpatient (RCR) | payer MEDICARE, OTHER, SELFPAY ==
[2022-05-07 04:10] VITALS: BMI 21.3
[2022-05-24 13:46] LABS: INR Fingerstick 2.1; Prothrombin Time Fingerstick 24.7 SEC (11.7-14.9)
== END 2022-05-24 18:00 | disposition home or self-care (01) ==
LOC: MTLAB 13:34
PROVIDERS: PCP Family Medicine; Referring Provider Family Medicine; Visit Provider Family Medicine
DX: Z79.01 Long term (current) use of anticoagulants (principal)
CPT/HCPCS: 36416; 85610

== ENCOUNTER → 2022-05-30 | Outpatient (CLI) | payer MEDICARE, OTHER, SELFPAY ==
[2022-05-30 12:29] LABS: Absolute Lymphocyte Count 1.12 X10^3/uL (0.83-4.51); Absolute Neutrophil Count 4.3 X10^3/uL (2.0-7.7); Basophil# 0.05 X10^3/uL; Basophil% 0.8 % (0-1); Eosinophil# 0.13 X10^3/uL; Hematocrit 42.9 % (37-47); Hemoglobin 14.5 g/dL (12.0-15.0); Lymphocyte # 1.12 X10^3/ul (0.83-4.51); Lymphocyte % 17.1 % (19-41); Mean Corp Hgb Conc 33.8 g/dL (32-36); Mean Corpuscular Hgb 32.4 pg (27.0-32.0); Mean Corpuscular Volume 95.8 fL (81-99); Mean Platelet Vol. 11.4 fl (6.2-12.0); Monocyte# 0.98 X10^3/uL; Monocyte% 14.9 % (0-10); NRBC Flagged by Analyzer 0 % (0-5); Neutrophil # 4.26 X10^3/uL (2.7-7.7); Neutrophil % 64.9 % (47-70); Platelet Count 195 K/mm3 (150-450); RBC Distribution Width CV 12.3 % (11.6-14.6); RBC Distribution Width SD 43.6 fl (35.1-43.9); Red Blood Count 4.48 M/mm3 (4.2-5.4); White Blood Count 6.6 K/mm3 (4.4-11.0)
[2022-05-30 13:38] LABS: AST(SGOT) 22 U/L (15-37); Alanine Aminotransfer ALT/SGPT 23 U/L (13-56); Alkaline Phosphatase 85 U/L (45-117); Anion Gap 8 (5-15); BUN 20 mg/dL (7-18); BUN/Creat Ratio 17.7 RATIO (10-20); Bilirubin, Direct 0.15 mg/dL (0.00-0.30); Calcium,Total 10.2 mg/dL (8.5-10.1); Chloride 102 mmol/L (98-107); Cholesterol 152 mg/dL (200); Creatinine, Serum 1.13 mg/dL (0.55-1.02); EST Glomerular Filtration Rate 49 mL/min (>60); Est Glom Filt Rate - Afr Amer 59 mL/min (>60); Globulin 4.3 g/dL (2.2-4.2); Glucose 104 mg/dL (74-106); High Density Lipoprotein 77 mg/dL; Magnesium 1.9 mg/dL (1.6-2.6); Potassium 4.4 mmol/L (3.5-5.1); Protein, Total 8.3 g/dL (6.4-8.2); Sodium Level 137 mmol/L (136-145); Thyroid Stim Hormone (TSH) 0.96 uIU/mL (0.358-3.74); Triglycerides 82 mg/dL; Very Low Density Lipoprotein 16 mg/dL (5-40)
== END | disposition home or self-care (01) ==
LOC: MTLAB 09:34
PROVIDERS: PCP Family Medicine; Referring Provider Internal Medicine Cardiovascular Disease; Visit Provider Internal Medicine Cardiovascular Disease
DX: R55 Syncope and collapse (principal); I48.11 Longstanding persistent atrial fibrillation; E78.00 Pure hypercholesterolemia, unspecified; I10 Essential (primary) hypertension; I05.9 Rheumatic mitral valve disease, unspecified; E03.2 Hypothyroidism due to medicaments and other exogenous substances
CPT/HCPCS: 36415; 80048; 80061; 80076; 83735; 84443; 85025

== ENCOUNTER 2022-06-27 13:34 | Outpatient (RCR) | payer MEDICARE, OTHER, SELFPAY ==
[2022-06-07 10:41] VITALS: BMI 21.3
[2022-06-27 13:46] LABS: INR Fingerstick 2.2; Prothrombin Time Fingerstick 26.1 SEC (11.7-14.9)
== END 2022-07-06 18:00 | disposition home or self-care (01) ==
LOC: MTLAB 13:34
PROVIDERS: PCP Family Medicine; Referring Provider Family Medicine; Visit Provider Family Medicine
DX: Z79.01 Long term (current) use of anticoagulants (principal)
CPT/HCPCS: 36416; 85610

== ENCOUNTER 2022-07-27 09:35 | Outpatient (RCR) | payer MEDICARE, OTHER, SELFPAY ==
[2022-07-07 02:37] VITALS: BMI 21.3
[2022-07-27 09:51] LABS: INR Fingerstick 2.4; Prothrombin Time Fingerstick 27.5 SEC (11.7-14.9)
== END 2022-07-27 18:00 | disposition home or self-care (01) ==
LOC: MTLAB 09:35
PROVIDERS: PCP Family Medicine; Referring Provider Family Medicine; Visit Provider Family Medicine
DX: Z79.01 Long term (current) use of anticoagulants (principal)
CPT/HCPCS: 36416; 85610

== ENCOUNTER → 2023-06-09 | Outpatient (CLI) | payer MEDICARE, OTHER, SELFPAY ==
--- NOTE | 2023-06-09 12:03 | RAD_ITS ---
STUDY: X-RAY CHEST REASON FOR EXAM: Female, 87 years old. Shortness of breath. TECHNIQUE: Frontal and lateral views of the chest. COMPARISON: December 01, 2018 FINDINGS: Stable marked hyperinflation and hyperlucency with flattening of the hemidiaphragms compatible with marked COPD. There is no demonstrated pleural abnormality. Cardiomegaly unchanged. Normal mediastinum and angelo. Normal visualized pulmonary arteries. Aortic tortuosity unchanged. Thoracic osteopenia with increased kyphosis and mild anterior wedging of a midthoracic vertebral body, age indeterminant. Normal visualized ribs, clavicles, and shoulders. No abnormality of the visualized soft tissue structures of the upper abdomen. RAD/Chest PA and Lateral IMPRESSION: Stable cardiomegaly and findings of marked COPD. No active or acute cardiopulmonary disease. Electronically Signed: Lux Swanson MD at 13:40 EDT ,
== END | disposition home or self-care (01) ==
LOC: RAD 11:59
PROVIDERS: PCP Family Medicine; Referring Provider Nurse Practitioner Acute Care; Visit Provider Nurse Practitioner Acute Care
DX: R06.09 Other forms of dyspnea (principal)
CPT/HCPCS: 71046

== ENCOUNTER → 2023-06-12 | Outpatient (CLI) | payer MEDICARE, OTHER, SELFPAY ==
--- NOTE | 2023-06-16 08:11 | PFTCOMP ---
COMPLETE PULMONARY FUNCTION TEST INTERPRETATION Brief HPI: Patient is an 87-year-old female, currently under the care of Haven Bustamante, who presents to [facility] for complete pulmonary function tests secondary to diagnosis of dyspnea. Respiratory therapist reports good effort and reproducible results. Interpretation: Forced expiration spirometry shows a moderately severe large airways obstructive ventilatory defect with an FEV1 of 53% predicted. There is no significant bronchodilator response by strict ATS criteria. Spirograms are of good quality and plateau slowly, indicating slowly emptying areas of the lungs. The respiratory flow volume loop shows decreased expiratory flow rates at all lung volumes consistent with airway obstruction. Lung volumes by body plethysmography show an elevated total lung capacity at 5.95 L, 125% predicted. FRC and RV are elevated out of proportion. Lung volume measurements are consistent with hyperinflation and air-trapping. Diffusion capacity by carbon monoxide is decreased at 51% predicted. The airway resistance is elevated. Compared to previous pulmonary function tests from 04/23/2019, there has been a significant reduction in FEV1, FVC and DLCO. Patient also had a bronchodilator response at that time that was not demonstrated on the current testing. Impression: Irreversible moderately severe large airways obstructive ventilatory defect resulting in air trapping with hyperinflation and a symmetric reduction diffusion capacity.
== END | disposition home or self-care (01) ==
LOC: PSN 09:24
PROVIDERS: PCP Family Medicine; Referring Provider Nurse Practitioner Acute Care; Visit Provider Nurse Practitioner Acute Care
DX: R06.09 Other forms of dyspnea (principal)
CPT/HCPCS: 94060; 94726; 94729

== ENCOUNTER 2024-01-20 05:19 | Emergency (ER) | payer MEDICARE, OTHER, SELFPAY ==
[2024-01-20 05:20] VITALS: BP 141/87; PULSE 119; RESP 18; TEMP 36.3; O2SAT 93; BMI 43.5
--- NOTE | 2024-01-20 05:32 | EKG12_ITS ---
Test Reason : PALPITATIONS Blood Pressure : / mmHG Vent. Rate : 094 BPM Atrial Rate : 000 BPM P-R Int : 000 ms QRS Dur : 082 ms QT Int : 354 ms P-R-T Axes : 000 074 048 degrees QTc Int : 442 ms Atrial fibrillation Nonspecific ST abnormality Abnormal ECG Confirmed by CATEIRNA NATHAN, BERNA ([id number]), acquisition editor DOREEN BOSE ([id number]) on 01/22/2024 9:48:33 AM Referred By: Confirmed By:AMNA DIGGS MD
[2024-01-20 05:46] LABS: Absolute Lymphocyte Count 1.41 X10^3/uL (0.83-4.51); Absolute Neutrophil Count 6.8 X10^3/uL (2.0-7.7); Basophil# 0.07 X10^3/uL; Basophil% 0.7 % (0-1); Eosinophil# 0.09 X10^3/uL; Eosinophils% 0.9 % (0-5); Hemoglobin 13.8 g/dL (12.0-15.0); Lymphocyte # 1.41 X10^3/ul (0.83-4.51); Lymphocyte % 14.9 % (19-41); Mean Corp Hgb Conc 34.5 g/dL (32-36); Mean Corpuscular Hgb 32.7 pg (27.0-32.0); Mean Corpuscular Volume 94.8 fL (81-99); Mean Platelet Vol. 10.5 fl (6.2-12.0); Monocyte# 1.11 X10^3/uL; Monocyte% 11.7 % (0-10); NRBC Flagged by Analyzer 0 % (0-5); Neutrophil # 6.77 X10^3/uL (2.7-7.7); Neutrophil % 71.5 % (47-70); Platelet Count 162 K/mm3 (150-450); RBC Distribution Width CV 12.5 % (11.6-14.6); RBC Distribution Width SD 43.5 fl (35.1-43.9); Red Blood Count 4.22 M/mm3 (4.2-5.4); White Blood Count 9.5 K/mm3 (4.4-11.0)
--- NOTE | 2024-01-20 05:50 | RAD_ITS ---
INDICATION: chest pain EXAMINATION/TECHNIQUE: X-RAY - XR Chest 1 View COMPARISON: 06/09/2023. FINDINGS: LINES/DEVICES: None. LUNGS: No consolidation or evidence of an effusion. No evidence of edema or a pneumothorax. Hyperinflation of the lungs which may represent COPD. MEDIASTINUM AND CARDIOVASCULAR STRUCTURES: Cardiac silhouette is normal in size and contour. Mediastinum is unremarkable. BONES AND SOFT TISSUES: No acute abnormality. RAD/Chest 1 View (Portable) IMPRESSION: No evidence of acute cardiopulmonary disease. Electronically Signed: Osmin Olivas DO at 6:56 EDT ,
--- NOTE | 2024-01-20 05:59 | CT_ITS ---
INDICATION: left flank pain EXAMINATION: CT Abdomen And Pelvis W/O Contrast Injection TECHNIQUE: Helically acquired images were obtained of the abdomen and pelvis with sagittal and coronal reconstructed images. Individualized dose optimization techniques were used for this CT. IV contrast dosage and agent: None. Oral contrast: None. COMPARISON: None. FINDINGS: VESSELS: No abdominal aortic aneurysm. LIVER: No intrahepatic or extrahepatic biliary duct dilation. Hepatomegaly. GALLBLADDER: No calcified stones. No evidence of cholecystitis. PANCREAS: Masslike appearance adjacent to the head of the pancreas. No evidence of pancreatitis. SPLEEN: Normal. ADRENAL GLANDS: Normal. KIDNEYS AND URETERS: No urinary tract stone. No hydronephrosis or hydroureter. No significant asymmetric perinephric stranding. URINARY BLADDER: Unremarkable. BOWEL: No evidence of diverticulosis or diverticulitis. Appendix not identified. Large amount stool retention. No evidence of bowel obstruction. REPRODUCTIVE ORGANS: Unremarkable. PERITONEUM: No intraabdominal free fluid or free air. LYMPH NODES: No pathologically enlarged mesenteric or retroperitoneal lymph nodes. ABDOMINAL WALL: No abdominal or pelvic wall hernia. BONES: No acute abnormality. LOWER CHEST: Centrilobular emphysematous changes of the lungs. CT/Abdomen/Pelvis without Cont IMPRESSION: 1. No acute abnormality. 2. No urinary tract stone or obstruction. 3. Masslike appearance at or adjacent to the head of the pancreas. This may be due to volume averaging with adjacent duodenum on this noncontrast CT, however recommend follow-up with routine MRI versus CT with dedicated pancreas protocol. 4. Hepatomegaly. Electronically Signed: Osmin Olivas DO at 7:14 EDT ,
[2024-01-20 06:11] LABS: International Normalized Ratio 2.7; Prothrombin Time (Protime)PT. 28.1 SECONDS (11.7-14.9)
[2024-01-20 06:12] LABS: Partial Thromboplast Time 34.5 Seconds (24.1-36.2)
[2024-01-20 06:15] LABS: Anion Gap 8 (5-15); BUN 33 mg/dL (7-18); BUN/Creat Ratio 31.1 RATIO (10-20); Calcium,Total 9.9 mg/dL (8.5-10.1); Chloride 102 mmol/L (98-107); Creatinine, Serum 1.06 mg/dL (0.55-1.02); EST Glomerular Filtration Rate 52 mL/min (>60); Est Glom Filt Rate - Afr Amer 63 mL/min (>60); Estimated Creatinine Clearance 45.76 ml/min; Glucose 131 mg/dL (74-106); Magnesium 2.2 mg/dL (1.6-2.6); Potassium 3.9 mmol/L (3.5-5.1); Sodium Level 136 mmol/L (136-145); Thyroid Stim Hormone (TSH) 1.26 uIU/mL (0.358-3.74)
[2024-01-20 06:19] LABS: AST(SGOT) 23 U/L (15-37); Alanine Aminotransfer ALT/SGPT 26 U/L (13-56); Alkaline Phosphatase 92 U/L (45-117); Bilirubin, Direct 0.19 mg/dL (0.00-0.30); Globulin 3.9 g/dL (2.2-4.2); Lipase 103 U/L (13-75); Protein, Total 7.9 g/dL (6.4-8.2)
[2024-01-20 06:21] LABS: Bacteria 0 SEEN /hpf (None Seen); Mucous, Urine 0 SEEN /hpf (<or=2+); Red Blood Cells-Urine 0 SEEN /hpf (0-5); Squamous Epithelial Cells - UA 0 SEEN /hpf (5-10); White Blood Cells 0 SEEN /hpf (0-5)
[2024-01-20] MEDS: dilTIAZem 25 MG/5 ML Vial 10 MG IV BOLUS (06:23)
[2024-01-20] MEDS: 0.9% Normal Saline (500mL Bag) 500 ML 999 ML IV (06:23)
[2024-01-20 06:27] LABS: Color, Urine Yellow (Yellow); Glucose, Dipstick Normal (Normal); Ketone-Dipstick Negative (Negative); Leukocyte Esterase-Dipstick Negative /ul (Negative); Nitrite-Dipstick Negative (Negative); Occult Blood-Urine 10 /ul (Negative); Protein-Dipstick 15 mg/dl (Negative); Specific Gravity, Urine 1.015 (1.002-1.030); Urine Bilirubin Dipstick Negative (Negative); Urine Clarity Clear (Clear); Urine Urobilinogen Normal (Normal)
--- NOTE | 2024-01-20 06:34 | EX.ED.DYSGE1 ---
HPI History of Present Illness Chief Complaint: Palpitations Informant: patient and EMS Narrative Narrative: Patient is 88-year-old female from home with past medical history of persistent/chronic atrial fibrillation on Coumadin as well as hypertension and hyperlipidemia. She states she did her normal daily activities yesterday and denies any excessive activity or trauma. She states she went to bed normally. She reports she awoke this morning with a pain/discomfort along the left flank/shoulder blade. She states the pain then began to wrap towards the left side of the abdomen. She states that her heart was beating faster as well with this. She denies any hematuria or dysuria. She denies any fevers or chills or shortness of breath or diaphoresis. She states that she was unsure if the pain was related to her heart and secondary to this called EMS to bring her in for evaluation. EMS does state when they arrived she resting comfortably but her heart rate was tachycardic at approximately 140-150 PFSH PFSH Medical History Longstanding persistent atrial fibrillation Pure hypercholesterolemia Essential hypertension Other specified transient cerebral ischemias Dyspnea Mitral valve disorder Hypothyroidism, iatrogenic Home Medications ?Medication ?Instructions ?Recorded ?Last Taken ?Type cholecalciferol (vitamin D3) 50 2,000 unit PO DAILY SUPPLEMENT 10/09/16 Unknown History mcg (2,000 unit) capsule levothyroxine 75 mcg tablet 75 mcg PO DAILY THRYOID 10/09/16 Unknown History lisinopril 20 1 tab PO DAILY BLOOD PRESSURE 10/09/16 Unknown History mg-hydrochlorothiazide 12.5 mg tablet multivitamin with folic acid 400 1 tab PO DAILY SUPPLEMENT 10/09/16 Unknown History mcg tablet omega-3s 720 mg-dha 300 mg-epa 360 1 ea PO DAILY SUPPLEMENT 10/09/16 Unknown History mg-fish oil 1,200 mg capsule vitamin B complex (B 1 tab PO .QOD 02/20/19 Unknown History Complex-Vitamin B12 tablet) albuterol sulfate 90 mcg/actuation 2 inh inhalation Q4H PRN shortness 05/20/19 Unknown Rx breath activated powder inhaler of breath or wheezing #1 ea (ProAir RespiClick) docusate sodium 100 mg capsule 50 mg PO DAILY PRN CONSTIPATION 08/30/19 Unknown History diltiazem HCl 120 mg 120 mg PO DAILY Dose decreased for 06/01/23 Unknown Rx capsule,extended release 24 hr slow heart rate #90 caps warfarin 6 mg tablet 6 mg PO DAILY BLOOD THINNER 07/10/23 Unknown History rosuvastatin 5 mg tablet 5 mg PO DAILY CHOLESTEROL #90 tabs 12/08/23 Unknown Rx Allergy/AdvReac Type Severity Reaction Status Date / Time No Known Allergies Allergy Verified 01/20/24 05:26 Family History Mother CAD (coronary artery disease) Brother Cancer Brother Cancer Epilepsy Sister Diabetes Sister Diabetes Sister CVA (cerebral vascular accident) Surgical History History of appendectomy History of cataract extraction History of hysterectomy Social History Smoking Status: Former smoker Tobacco: How many years used: 25 how long ago did patient quit smokin, 0.5ppd second hand exposure: Yes alcohol intake: never substance use type: does not use caffeine: Yes Type: other Number of servings: 1 what type of physical activity do you participate in: none seatbelt use: always ROS ROS ED Constitutional Constitutional ED: Denies chills or fever(s) Eyes Eyes: Denies change in vision or diplopia ENT ENT ED: Denies sore throat Cardiovascular Cardiovascular: Reports palpitations and racing heartbeat; Denies chest pain Respiratory/Chest Respiratory/Chest: Denies cough or dyspnea Gastrointestinal Gastrointestinal: Reports abdominal pain; Denies diarrhea, nausea or vomiting Genitourinary Genitourinary ED: Denies dysuria or hematuria Musculoskeletal Musculoskeletal: Reports back pain Integumentary Denies rash Neurologic Neurologic: Denies headache(s) Hematologic/Lymphatic Hematologic/Lymphatic: Reports easy bleeding and easy bruising EXAM Physical Exam Const Vital Signs: 01/20/24 05:20 01/20/24 05:23 01/20/24 07:20 Temperature 97.3 F L Temperature Source Temporal Pulse Rate 119 H 113 H Respiratory Rate 18 26 H Respiratory Effort Normal Blood Pressure 141/87 H 118/85 H Blood Pressure Mean 105 96 Pulse Ox 93 97 Oxygen Delivery Method Room Air Room Air Positive well nourished and well developed General Appearance ED: well developed; Negative for pallor HEENT Reports moist mucous membranes HEENT Narrative: No signs of infection noted in the posterior pharynx Eyes PERRL and EOMs intact bilaterally General Eye ED: Negative for scleral icterus Neck supple Chest Wall palpation of chest normal Chest Narrative: No bony deformity or crepitance of the chest wall no pain with palpation Resp normal respiratory effort and clear to auscultation bilaterally Resp Narrative: Breath sounds are slight diminished throughout but overall clear to auscultation without signs of respiratory distress Cardio Rate: tachycardic and other Other Details: Irregularly irregular rhythm with tachycardic rate consistent atrial fibrillation with RVR GI non-distended and no masses GI Narrative: Abdomen is soft and nondistended with normal active bowel sounds. There is pain with palpation in the midepigastric to left upper quadrant region. No voluntary guarding or rigidity. No pulsatile mass or fluid wave. Auscultation: normoactive bowel sounds Palpation: soft Back/Spine Back/Spine Narrative: Pain with palpation along the left posterior scapula/CVA region No overlying soft tissue changes to suggest trauma or infection Extremity normal to inspection Extremity Narrative: No asymmetric edema no pitting edema negative Homans' sign bilaterally Neuro oriented x3 and CN's II-XII intact bilaterally Sensorium / Orientation: alert Motor Exam: strength 5/5 throughout Psych Psych Narrative: Patient has a nervous/anxious affect Skin no rashes or lesions noted General Skin Exam: Negative for jaundice or pallor MDM MDM MDM Narrative Medical decision making narrative: Patient arrived to the ER mildly tachycardic but much improved from the rate noted by EMS. She has chronic/persistent atrial fibrillation but states it is typically rate controlled and therefore there is high likelihood that the symptoms she felt this morning were related to the rapid ventricular response. As she typically takes Cardizem at night to help control heart rate she was given an extra dose in the ER and heart rate was approximately 90 bpm. As she also noted pain along the left inferior scapula/CVA region and some into the left sided abdomen there is concern this could be atypical kidney stone or pyelonephritis. Urine sample showed no sign of infection and CT scan revealed no acute stone. It did note potential mass along the head of the pancreas but this would be moving towards the right side of the abdomen and patient does not have pain at that site so does not clinically correlate. However her lipase was slightly elevated so she was informed of this finding and the need to have outpatient testing. At this time she does not have acute blood loss anemia acute kidney injury or severe electrolyte abnormality and her heart rate is stable at approximately 90 to 100 bpm. As her INR is therapeutic I have low concern that this is a potential PE or mesenteric ischemia event and therefore do not feel there is a need for a CTA of the chest abdomen or pelvis. Therefore at this time as workup is showing no signs of electrolyte abnormality acute kidney injury subtherapeutic INR pneumonia/pneumothorax/pleural effusion or kidney stone and patient is resting comfortably I feel she can be discharged home and follow-up on an outpatient basis. History & Record Review Discussion w/independent historian: EMS personnel and Patient Lab Data Attestation: I reviewed the patient's lab results. Labs: Laboratory Results - last 24 hr 01/20/24 01/20/24 05:37 06:15 WBC 9.5 RBC 4.22 Hgb 13.8 Hct 40.0 MCV 94.8 MCH 32.7 H MCHC 34.5 RDW Std Deviation 43.5 RDW Coeff of Alexia 12.5 Plt Count 162 MPV 10.5 Immature Gran % (Auto) 0.300 Neut % (Auto) 71.5 H Lymph % (Auto) 14.9 L Hettinger % (Auto) 11.7 H Eos % (Auto) 0.9 Baso % (Auto) 0.7 Absolute Neuts (auto) 6.8 Absolute Lymphs (auto) 1.41 Nucleated RBC % 0 PT 28.1 H INR 2.7 APTT 34.5 Sodium 136 Potassium 3.9 Chloride 102 Carbon Dioxide 26.0 Anion Gap 8 BUN 33 H Creatinine 1.06 H Estim Creat Clear Calc 45.76 Est GFR (MDRD) Af Amer 63 Est GFR (MDRD) Non-Af 52 L BUN/Creatinine Ratio 31.1 H Glucose 131 H Calcium 9.9 Magnesium 2.2 Total Bilirubin 0.50 Direct Bilirubin 0.19 AST 23 ALT 26 Alkaline Phosphatase 92 Total Protein 7.9 Albumin 4.0 Globulin 3.9 Lipase 103 H TSH 1.26 Urine Color Yellow Urine Clarity Clear Urine pH 8.0 Ur Specific [place] 1.015 Urine Protein 15 H Urine Glucose (UA) Normal Urine Ketones Negative Urine Occult Blood 10 H Urine Nitrite Negative Urine Bilirubin Negative Urine Urobilinogen Normal Ur Leukocyte Esterase Negative Urine RBC 0 SEEN Urine WBC 0 SEEN Ur Squamous Epith Cells 0 SEEN Urine Bacteria 0 SEEN Urine Mucus 0 SEEN Radiography Diagnostic Testing: Clinical Impression(s) from Imaging Studies Chest X-Ray 01/20/24 05:50 IMPRESSION: No evidence of acute cardiopulmonary disease. Electronically Signed: Osmin OlivasDO at 6:56 EDT , Abdomen/Pelvis CT 01/20/24 05:59 IMPRESSION: 1. No acute abnormality. 2. No urinary tract stone or obstruction. 3. Masslike appearance at or adjacent to the head of the pancreas. This may be due to volume averaging with adjacent duodenum on this noncontrast CT, however recommend follow-up with routine MRI versus CT with dedicated pancreas protocol. 4. Hepatomegaly. Electronically Signed: Osmin OlivasDO at 7:14 EDT , 1 view chest x-ray as interpreted by the emergency medicine physician reveals no acute infiltrate pneumothorax or pleural effusion Discharge Plan Triage Chief Complaint: Palpitations ED Provider: Polo Gomez Dx/Rx/DC Orders Clinical Impression: Chronic atrial fibrillation with rapid ventricular response, Essential hypertension, Current use of long-term anticoagulation, Hypothyroidism Instructions: AFib Dc Prescriptions: No Action vitamin B complex [B Complex-Vitamin B12] Tablet 1 tab PO .QOD rosuvastatin 5 mg tablet 5 mg PO DAILY Qty: 90 3RF lisinopril-hydrochlorothiazide 1 TABLET tablet 1 tab PO DAILY levothyroxine 75 MCG tablet 75 mcg PO DAILY cholecalciferol (vitamin D3) 2,000 UNIT capsule 2,000 unit PO DAILY multivitamin with folic acid 1 TABLET tablet 1 tab PO DAILY xcocv-0q-cvw-epa-fish oil 1 EACH capsule 1 ea PO DAILY docusate sodium 100 mg capsule 50 mg PO DAILY PRN (Reason: CONSTIPATION) warfarin 6 mg tablet 6 mg PO DAILY Patient Comments: Managed by PCP ProAir RespiClick 90 mcg/actuation aerosol powdr breath activated 2 inh INHALATION Q4H PRN (Reason: shortness of breath or wheezing) Qty: 1 6RF Rx Instructions: administer with spacer diltiazem HCl 120 mg capsule,extended release 24hr 120 mg PO DAILY Qty: 90 3RF Primary Care Provider: Willi Bae Referrals: Willi Bae MD [Primary Care Provider] - Activity Restrictions/Additional Instructions: Your workup today did not show any sign of pneumonia or kidney stone or kidney infection. The CT scan did note a potential mass along the head of your pancreas and therefore talk to your family doctor about an outpatient MRI and or dedicated pancreatic CT scan for further evaluation of this. Please continue all of your home medication as directed by your doctor in order to keep your heart rate under control and return to the ER should you have any further concerns. Print Language: Latvian Disposition Disposition: Home, Self Care
[2024-01-20 07:20] VITALS: BP 118/85; PULSE 113; RESP 26; O2SAT 97
== END 2024-01-20 07:56 | disposition home or self-care (01) ==
PROVIDERS: Emergency Provider Emergency Medicine; PCP Family Medicine; Visit Provider Emergency Medicine
DX: I48.20 Chronic atrial fibrillation, unspecified (principal); E03.9 Hypothyroidism, unspecified; I10 Essential (primary) hypertension; E78.00 Pure hypercholesterolemia, unspecified; Z79.01 Long term (current) use of anticoagulants; Z79.890 Hormone replacement therapy; Z79.899 Other long term (current) drug therapy; Z87.891 Personal history of nicotine dependence
CPT/HCPCS: 71045; 74176; 80048; 80076; 81001; 83690; 83735; 84443; 85025; 85610; 85730; 93005; 96361; 96374; 99283; J7040; A4216

== ENCOUNTER → 2025-05-20 | Outpatient (CLI) | payer MEDICARE, OTHER, SELFPAY ==
--- NOTE | 2025-05-20 07:50 | ECHOD_ITS ---
Reason For Study Reason For Study: Dyspnea/SOB Procedure This was a 2D Doppler, Color Flow transthoracic echocardiogram. Exam performed in department. Left Ventricle Normal LV size. Left ventricular systolic function is normal. The left ventricular ejection fraction is 60 %. No regional wall motion abnormalities noted. Right Ventricle Normal RV size. Normal systolic function. Atria The left atrium is moderately enlarged. Normal right atrium. Mitral Valve Bileaflet diffuse mitral valve thickening. Equivocal mitral valve prolapse. Mild (1+) mitral valve insufficiency. Tricuspid Valve Normal tricuspid valve. Mild (1+) tricuspid valve insufficiency. Pulmonary artery systolic pressure is 34 mmHg. Aortic Valve Trisinus/trileaflet aortic valve. Pulmonic Valve Normal pulmonic valve. Great Vessels Normal aortic root. The pulmonary artery is normal size. Inferior vena cava collapse with respiration. Pericardium/Pleural No pericardial effusion. MMode/2D Measurements & Calculations LVIDd: 3.2 cm IVSd: 0.66 cm Ao root diam: 3.0 cm LVIDs: 2.0 cm LVPWd: 0.83 cm RVDd: 2.6 cm FS: 37.0 % LAV(MOD-bp): 52.6 ml LVAd ap4: 13.1 cm2 SV(MOD-sp4): 19.9 ml LAV(MOD-bp) Indexed: 36.2 ml/m2 LVLd ap4: 5.3 cm SI(MOD-sp4): 13.7 ml/m2 LAV(MOD-sp2): 50.3 ml EDV(MOD-sp4): 26.4 ml LAV(MOD-sp4): 51.7 ml EDV(sp4-el): 27.2 ml LVAs ap4: 5.9 cm2 LVLs ap4: 4.5 cm ESV(MOD-sp4): 6.5 ml ESV(sp4-el): 6.6 ml EF(MOD-sp4): 75.5 % EF(sp4-el): 75.8 % SV(sp4-el): 20.6 ml LA A4 area: 18.4 cm2 LA dimension(2D): 2.6 cm RA A4 area: 11.7 cm2 Doppler Measurements & Calculations MV E max brooks: 119.4 cm/sec Lat Peak E' Brooks: 8.0 cm/sec Med Peak E' Brooks: 10.0 cm/sec E/E' lat: 14.9 E/E' med: 11.9 MV V2 max: 171.6 cm/sec Ao V2 max: 112.5 cm/sec LV V1 max: 87.2 cm/sec MV max P.8 mmHg Ao max P.1 mmHg LV V1 max P.1 mmHg MV V2 mean: 76.5 cm/sec Ao V2 mean: 86.8 cm/sec LV V1 mean P.6 mmHg MV mean P.4 mmHg Ao mean P.2 mmHg LV V1 mean: 60.4 cm/sec MV V2 VTI: 33.0 cm Ao V2 VTI: 23.6 cm LV V1 VTI: 17.8 cm AV (velocity ratio): 0.75 PA V2 max: 99.5 cm/sec PI end-d brooks: 129.5 cm/sec TR max brooks: 278.5 cm/sec TR max P.1 mmHg ECHO/Echo Complete Interpretation Summary Normal LV size. Left ventricular systolic function is normal. The left ventricular ejection fraction is 60 %. Bileaflet diffuse mitral valve thickening. Equivocal mitral valve prolapse. Mild (1+) tricuspid valve insufficiency. Ordering Physician: Colin Chávez Referring Physician: Willi Bae Performed By: Winsome López, ALAN, RVT
--- NOTE | 2025-05-20 07:50 | AAAS_ITS ---
Reason For Study Reason For Study: R/O AAA HTN Aorta Measurements Aorta Doppler Measurements Proximal aorta measures1.79x1.75cm. in cross-sectional axis.Peak systolic flow velocities within the proximal aorta Proximal aorta measures1.82cm. in longitudinal axis. measure 50.8 cm/sec. Mid aorta measures1.26x1.28cm. in cross-sectional axis. Peak systolic flow velocities within the mid aorta measure Mid aorta measures1.27cm. in longitudinal axis. 85.7 cm/sec. Distal aorta measures1.20x1.21cm. in cross-sectional axis. Peak systolic flow velocities within the distal aorta Distal aorta measures1.18cm. in longitudinal axis. measure 76.0 cm/sec. Left Iliac Artery Left iliac artery measures 0.79x0.79 cm. in the cross-sectional axis. Left iliac artery measures 0.79 cm. in the longitudinal axis. Peak systolic velocity in the left iliac artery measures 92.0 cm/sec. Right Iliac Artery Right iliac artery measures 0.92x0.91 cm. in the cross-sectional axis. Right iliac artery measures 0.89 cm. in the longitudinal axis. Peak systolic velocity in the right iliac artery measures 152.6 cm/sec. Procedure Aorta IVC Iliac vasculature or bypass grafts 14661. Exam performed in department. VL/AAA Screening Interpretation Summary Aorta patent, normal caliber. Bilateral iliac arteries patent, normal caliber. Ordering Physician: Colin Chávez Referring Physician: Willi Bae MD Performed By: Sandra Shelby and Student, RVT
== END | disposition home or self-care (01) ==
PROVIDERS: PCP Family Medicine; Referring Provider Internal Medicine Cardiovascular Disease; Visit Provider Internal Medicine Cardiovascular Disease
DX: R06.09 Other forms of dyspnea (principal)
CPT/HCPCS: 76706; 93306